=== PATIENT | female | born 1955 | race Caucasian/White ===

== ENCOUNTER 2017-11-08 10:25 | Inpatient (IN) | payer BC ==
[2017-11-08] MEDS ORDERED: NS 1000 ML 1,000 ML ONE (10:30)
[2017-11-08] MEDS ORDERED: ZOFRAN INJ 4 MG VIAL ONE ×3 (10:30→10:44)
[2017-11-08] MEDS ORDERED: ZOFRAN INJ 4 MG VIAL IVP ONE ×2 (10:31→11:47)
--- NOTE | 2017-11-08 10:37 | DR.GENAD ---
HPI - Complaint/Symptoms Chief Complaint Doctors Comments: Patient presents with complaint of abdominal pain and syncope of acute onset. PMH - PMH Past Surgical History: Yes ROS - Review of Systems Eyes: No Symptoms Reported ENTM: No Symptoms Reported Respiratoy: No Symptoms Reported Cardiovascular: No Symptoms Reported Gastrointestinal/Abdominal: No Symptoms Reported Genitourinary: No Symptoms Reported Neurological: No Symptoms Reported Musculoskeletal: No Symptoms Reported Integumentary: No Symptoms Reported Hematologic/Lymphatic: No Symptoms Reported Endocrine: No Symptoms Reported Psychiatric: No Symptoms Reported All Other Systems: Reviewed and Negative PE - Vital Signs Vitals: Temperature 97.5 F Pulse Rate [Right Brachial] 114 Pulse Rate 60 Respiratory Rate 18 Blood Pressure [Right Arm] 126/56 Blood Pressure 121/63 O2 Sat by Pulse Oximetry 99 - General Limitations: No Limitations General Appearance: Alert, In Distress - Head Head Exam: Normal Inspection, Atraumatic - Eyes Eye exam: Normal Appearance, PERRL, EOMI - ENT ENT Exam: Normal Exam, Normal Oropharynx External Ear Exam: Normal External Inspection TM/Canal Exam: Bilateral Normal Nose Exam: Normal Nose Exam Mouth Exam: Normal Inspection Throat Exam: Normal Inspection - Neck Neck Exam: Normal Inspection - Chest Chest Inspection: Normal Inspection - Respiratory Respiratory Exam: Normal Lung Sounds Bilat Respiratory Exam: Bilateral Clear to Auscultation - Cardiovascular Cardiovascular Exam: Tachycardia - Abdominal Exam Abdominal Exam: Rebound (RLQ), Dimnished Bowel Sounds Abdominal Tenderness: RLQ, Suprapubic - Extremities Extremities Exam: Normal Inspection - Back Back Exam: Normal Inspection - Neurologic Neurological Exam: Alert, Oriented X3, CN II-XII Intact - Psychiatric Psychiatric Exam: Normal Affect - Skin Skin Exam: Warm, Dry, Intact Course - Reevaluation 1st: Improved - Consultation Called: 12:40 (Agreed to admit for further evaluation) ROR - Labs Reviewed Laboratory Results Reviewed?: Yes (low potassium) Result Diagrams: 11/08/17 10:53 11/08/17 10:53 Laboratory: WBC 13.2 X10^3/uL (3.6-10.0) H 11/08/17 10:53 RBC 4.17 X10^6/uL (3.5-5.4) 11/08/17 10:53 Hgb 11.8 g/dL (12.0-16.0) L 11/08/17 10:53 Hct 35.7 % (36.0-47.0) L 11/08/17 10:53 MCV 85.6 fL (80.0-100.0) 11/08/17 10:53 MCH 28.3 pg (27.0-34.0) 11/08/17 10:53 MCHC 33.1 g/dL (33.0-35.0) 11/08/17 10:53 RDW 14.3 % (11.6-16.5) 11/08/17 10:53 Plt Count 232 X10^3/uL (150.0-450.0) 11/08/17 10:53 MPV 8.5 fL (7.4-11.0) 11/08/17 10:53 Neut % (Auto) 68.1 % (42.0-75.0) 11/08/17 10:53 Lymph % (Auto) 26.9 % (21.0-51.0) 11/08/17 10:53 [place] % (Auto) 3.8 % (0.0-13.0) 11/08/17 10:53 Eos % (Auto) 0.7 % (0.9-2.9) L 11/08/17 10:53 Baso % (Auto) 0.5 % (0.2-1.0) 11/08/17 10:53 Neut # (Auto) 9.0 x10^3/uL (2.2-4.8) H 11/08/17 10:53 Lymph # (Auto) 3.5 X10^3/uL (1.3-2.9) H 11/08/17 10:53 [place] # (Auto) 0.5 x10^3/uL (0.3-0.8) 11/08/17 10:53 Eos # (Auto) 0.1 x10^3/uL (0.0-0.2) 11/08/17 10:53 Baso # (Auto) 0.1 X10^3/uL (0.0-0.1) 11/08/17 10:53 Absolute Nucleated RBC 0.0 /100WBC 11/08/17 10:53 INR Target Range - 11/08/17 10:53 INR 0.98 (0.8-1.3) 11/08/17 10:53 APTT 23.9 SECONDS (22.9-36.5) 11/08/17 10:53 PTT Comment - 11/08/17 10:53 Sodium 143 mmol/L (136-145) 11/08/17 10:53 Corrected Sodium 144 mmol/L (136-145) 11/08/17 10:53 Potassium 3.3 mmol/L (3.5-5.1) L 11/08/17 10:53 Chloride 105 mmol/L (98-107) 11/08/17 10:53 Carbon Dioxide 24.6 mmol/L (21-32) 11/08/17 10:53 BUN 20 mg/dL (7-18) H 11/08/17 10:53 Creatinine 0.96 mg/dL (0.55-1.02) 11/08/17 10:53 Est GFR (MDRD) Af Amer > 60 (>60) 11/08/17 10:53 Est GFR (MDRD) Non-Af > 60 (>60) 11/08/17 10:53 Glucose 128 mg/dL (65-99) H 11/08/17 10:53 Calcium 9.4 mg/dL (8.5-10.1) 11/08/17 10:53 Corrected Calcium TNP 11/08/17 10:53 Magnesium 1.9 mg/dL (1.7-2.9) 11/08/17 10:53 Total Bilirubin 0.30 mg/dL (0.2-1.0) 11/08/17 10:53 AST 18 Units/L (15-37) 11/08/17 10:53 ALT 23 Units/L (12-78) 11/08/17 10:53 Alkaline Phosphatase 59 Units/L (46-116) 11/08/17 10:53 Creatine Kinase 43 Units/L (26-192) 11/08/17 10:53 CK-MB (CK-2) < 1.0 ng/mL (0-4.0) 11/08/17 10:53 CK/CKMB % Calc 2.3 % (<4) 11/08/17 10:53 Troponin I < 0.02 ng/mL (0-1.5) 11/08/17 10:53 Total Protein 7.1 g/dL (6.4-8.2) 11/08/17 10:53 Albumin 3.7 g/dL (3.4-5.0) 11/08/17 10:53 Globulin 3.4 g/dL (2.5-4.5) 11/08/17 10:53 Albumin/Globulin Ratio 1.1 Ratio (1.1-2.1) 11/08/17 10:53 Amylase 71 Units/L (25-115) 11/08/17 10:53 Lipase 118 Units/L (73-393) 11/08/17 10:53 - XRAY XRAY Interpreted by: Radiologist (CT Brain: negative for acute process, Chest: negative; CT abdom/pelv: Scattered penumobilia throughout the abdomen and pelvis , possible secondary to recent avbdominal surgery although perforated hollow viscus not excluded. Report reviewed by surgeon who discussed report with radiologist.) - Diagnosis Discharge Problem: Acute abdominal pain in right lower quadrant - Discharge Plan Condition: Stable - Follow ups/Referrals Follow ups/Referrals: RAAD MIRANDA [Primary Care Provider] - 3 days - Instructions
[2017-11-08] MEDS ORDERED: DILAUDID INJ IVP ONE (10:38)
[2017-11-08] MEDS ORDERED: DILAUDID INJ ONE ×3 (10:39→18:50)
[2017-11-08] MEDS ORDERED: DIPRIVAN VIAL ONE (10:44)
[2017-11-08] MEDS ORDERED: ROBINUL ONE (10:44)
[2017-11-08] MEDS ORDERED: QUELICIN (OR ANECTINE) ONE (10:44)
[2017-11-08] MEDS ORDERED: NORCURON INJ 10 MG VIAL ONE (10:44)
[2017-11-08] MEDS ORDERED: XYLOCAINE 2 % (PLAIN) ONE (10:44)
[2017-11-08] MEDS ORDERED: SUPRANE IN ONE (10:44)
[2017-11-08] MEDS ORDERED: NEOSTIGMINE INJ ONE (10:44)
[2017-11-08] MEDS ORDERED: EPHEDRINE SULFATE INJ ONE (10:44)
[2017-11-08] MEDS ORDERED: BENADRYL INJ 50 MG VIAL ONE (10:47)
[2017-11-08] MEDS ORDERED: BENADRYL INJ 50 MG VIAL IVP ONE (10:47)
[2017-11-08] MEDS ORDERED: DILAUDID INJ IVP STA (10:49)
[2017-11-08] MEDS ORDERED: NS 100 ML IV 100 ML IV ONE (10:56)
[2017-11-08 11:03] LABS: BASOPHILS # (AUTO) 0.1 X10^3/uL (0.0-0.1); BASOPHILS % (AUTO) 0.5 % (0.2-1.0); EOSINOPHILS # (AUTO) 0.1 x10^3/uL (0.0-0.2); EOSINOPHILS % (AUTO) 0.7 % (0.9-2.9); HEMATOCRIT 35.7 % (36.0-47.0); HEMOGLOBIN 11.8 g/dL (12.0-16.0); LYMPHOCYTES # (AUTO) 3.5 X10^3/uL (1.3-2.9); LYMPHOCYTES % (AUTO) 26.9 % (21.0-51.0); MEAN CORPUSCULAR HEMOGLOBIN 28.3 pg (27.0-34.0); MEAN CORPUSCULAR HGB CONC 33.1 g/dL (33.0-35.0); MEAN CORPUSCULAR VOLUME 85.6 fL (80.0-100.0); MEAN PLATELET VOLUME 8.5 fL (7.4-11.0); MONOCYTES # (AUTO) 0.5 x10^3/uL (0.3-0.8); MONOCYTES % (AUTO) 3.8 % (0.0-13.0); NEUTROPHILS % (AUTO) 68.1 % (42.0-75.0); PLATELET COUNT 232 X10^3/uL (150.0-450.0); RED BLOOD COUNT 4.17 X10^6/uL (3.5-5.4); RED CELL DISTRIBUTION WIDTH 14.3 % (11.6-16.5); WHITE BLOOD COUNT 13.2 X10^3/uL (3.6-10.0)
[2017-11-08 11:07] VITALS: BMI 25.0
[2017-11-08] MEDS: NS 1000 ML 1,000 ML IV SCH (11:08)
[2017-11-08 11:37] LABS: BLOOD UREA NITROGEN 20 mg/dL (7-18); CALCIUM 9.4 mg/dL (8.5-10.1); CARBON DIOXIDE 24.6 mmol/L (21-32); CHLORIDE 105 mmol/L (98-107); COR NA(FOR HYPERGLY) 144 mmol/L (136-145); CREATININE 0.96 mg/dL (0.55-1.02); SODIUM 143 mmol/L (136-145); TROPONIN I < 0.02 ng/mL (0-1.5); eGFR BLACK RACES > 60 (>60); eGFR NON BLACK RACES > 60 (>60)
[2017-11-08 11:39] LABS: ALANINE AMINOTRANSFERASE 23 Units/L (12-78); ALBUMIN 3.7 g/dL (3.4-5.0); ALKALINE PHOSPHATASE 59 Units/L (46-116); ASPARTATE AMINO TRANSFERASE 18 Units/L (15-37); CKMB % 2.3 % (<4); CREATINE KINASE 43 Units/L (26-192); CREATINE KINASE MB < 1.0 ng/mL (0-4.0); LIPASE 118 Units/L (73-393); MAGNESIUM 1.9 mg/dL (1.7-2.9); TOTAL PROTEIN 7.1 g/dL (6.4-8.2)
[2017-11-08] MEDS ORDERED: DILAUDID INJ IVP PRN (11:46)
--- NOTE | 2017-11-08 11:58 | RAD ---
Examination: AP chest History: Syncope Findings: Normal transverse heart diameter with clear lungs and pleural spaces. Impression: No acute or significant chest abnormality demonstrated. Reported By:
--- NOTE | 2017-11-08 12:37 | CT ---
HISTORY: Syncope Study: CT brain without contrast Comparison: No priors Technique: Multiple axial images of the brain were obtained from the skull base to the vertex without administra tion of IV contrast. Coronal and sagittal images are also reviewed. Dose reduction techniques utilize d automatic exposure control. Findings: No acute intraparenchymal hemorrhage or mass can be identified. No extra-axial fluid collections are seen. No alteration in the attenuation of the brain parenchyma can be identified to suggest acute o r subacute ischemic change. The ventricular system is symmetric and nondilated. There is chronic pe riventricular white matter disease observed and age-appropriate generalized atrophy. IMPRESSION: 1. No acute intracranial process can be identified. 2. Chronic periventricular white matter disease likely on the basis of small vessel ischemic change. 3. Age-appropriate atrophic changes are seen. Reported By:
--- NOTE | 2017-11-08 12:38 | CT ---
HISTORY: Abdominal pain Study: CT abdomen and pelvis without contrast Comparison: None Technique: Multiple axial images of the abdomen and pelvis were obtained from the lung bases to the pubic symphy sis without the administration of IV contrast. Findings: The visualized portions of the lung bases are unremarkable. Imaging of the abdomen and pelvis demonstrates pneumobilia scattered throughout the abdomen and pelvi s. This pneumobilia could be secondary to recent abdominal surgery, given patient's history of an ant erior approach lumbar fusion. However, a ruptured hollow viscus could appearance as well, and clinica l correlation is recommended in this regard. There is inflammatory stranding as well as free fluid wi thin the lower central abdomen and pelvis, possibly related to recent surgery. Evaluation of the sig moid colon and small bowel is very limited secondary lack of both oral and IV contrast. Although thes e inflammatory changes could be related to recent surgery, bowel pathology/perforation cannot be enti rely excluded. There appear to be surgical changes involving the sigmoid colon. Surgical clips are pr esent within the left in the pelvis. Within the posterior right hemipelvis there is a calcified struc ture measuring approximately 2.3 cm x 2.6 cm. This calcified structure is indeterminate but could pos sibly represent the remnant of a a calcified uterine fibroid or calcified ovarian lesion. Correlation with pelvis sonography may be of benefit in a nonemergent setting. The liver is unremarkable. The ga llbladder is mildly distended but otherwise unremarkable. A small hiatal hernia is incidentally noted . The pancreas, spleen, and bilateral adrenal glands are grossly unremarkable. Within the inferior po le of the left kidney there is a 45 mm nonobstructing caliceal stone. There is no hydronephrosis. No pathologic lymphadenopathy is identified within the abdomen or pelvis. Incidental note is made of a s mall fat containing umbilical hernia. The urinary bladder is grossly unremarkable. The bony structure s are grossly intact. Extensive postsurgical changes of the lumbar spine incidentally noted. IMPRESSION: 1. Scattered pneumobilia throughout the abdomen and pelvis, possibly secondary to recent abdominal s urgery, although perforated hollow viscus not excluded. Please see above discussion. Reported By:
[2017-11-08 13:21] LABS: BILIRUBIN,URINE NEGATIVE (NEGATIVE); BLOOD/HEMOGLOBIN,URINE NEGATIVE (NEGATIVE); GLUCOSE, URINE NEGATIVE (NEGATIVE); KETONES,URINE NEGATIVE (NEGATIVE); LEUKOCYTE ESTERASE ,URINE 1+ (NEGATIVE); NITRITES,URINE NEGATIVE (NEGATIVE); PROTEIN,URINE NEGATIVE (NEGATIVE); UROBILINOGEN,URINE NORMAL (NORMAL)
[2017-11-08 13:24] LABS: COLOR,URINE YELLOW (YELLOW)
[2017-11-08 13:29] LABS: APPEARANCE,URINE SLIGHTLY HAZY (CLEAR); RBC,URINE 0-2 /HPF (NONE SEEN); SQUAMOUS EPITHELIAL CELL,UR FEW /HPF (NEGATIVE)
[2017-11-08 13:30] LABS: AMORPHOUS SEDIMENT,UR 2+ /HPF (NEGATIVE); BACTERIA,URINE TRACE /HPF (NEGATIVE); MUCUS,URINE RARE /HPF (NEGATIVE)
[2017-11-08] MEDS ORDERED: NS 100 ML IV + SPIKE MINIBAG* 100 ML IV ONE ×2 (13:37→22:27)
[2017-11-08] MEDS: ZOSYN VIAL 3.375 GM IV SCH ×2 (13:44→23:40)
[2017-11-08] MEDS: FLAGYL IV PREMIX 500 MG BAG 500 MG/100 ML BAG IV SCH ×3 (13:44→21:43)
[2017-11-08] MEDS ORDERED: K-RIDER 10 MEQ/NS 100 ML 10 MEQ/100 ML BAG IV ONE (13:59)
[2017-11-08] MEDS ORDERED: ZOSYN VIAL 4.5 GM 4.5 GM in NS 100 ML IV + SPIKE MINIBAG* 100 ML IV SCH (14:00)
[2017-11-08] MEDS ORDERED: K-LYTE EFFERVESCENT PO ONE (14:04)
[2017-11-08] MEDS ORDERED: FENTANYL INJ 250 mcg ONE (14:38)
[2017-11-08] MEDS ORDERED: LR 1000 ML IV 1,000 ML IV ONE ×3 (14:42→18:16)
[2017-11-08] MEDS ORDERED: NS IRRIGATION 1000 ML 1,000 ML IR ONE (15:19)
[2017-11-08] MEDS ORDERED: ZOFRAN INJ 4 MG VIAL IVP PRN (17:39)
[2017-11-08] MEDS ORDERED: BENADRYL INJ 50 MG VIAL IVP PRN (17:39)
[2017-11-08] MEDS ORDERED: PHENERGAN INJ 25 MG IVP PRN (17:39)
[2017-11-08] MEDS ORDERED: REGLAN INJ 10 MG VIAL IVP PRN (17:39)
[2017-11-08] MEDS ORDERED: BACITRACIN VIAL ONE (17:40)
[2017-11-08] MEDS ORDERED: OFIRMEV IV 1000 MG VIAL 1,000 MG/100 ML VIAL IV ONE (17:44)
[2017-11-08] MEDS ORDERED: NS IRRIGATION 1000 ML 1,000 ML with BACITRACIN VIAL 50,000 UNT IR ONE ×2 (17:46)
--- NOTE | 2017-11-08 18:50 | OR.GENERIC ---
Post-Op Note Generic - Post-Op Note Operative Report: procedure : exploratory laparotomy , lysis of extensive abdominal adhesions 2 - resection of recto sigmoid with peoximal colostomy as Vanessa's procedure . pre op: acute abdomen with ruptured viscus and free air .. Post op :ruptured diverticulitis with fecal peritonitis .2- extensive abdominal adhesions .. EBL 300 cc. Pt ia stable .. on IV ATB.. DVT prophylaxis , NPO.incentive spirometer .
[2017-11-08] MEDS: DILAUDID INJ IVP PRN ×5 (18:52→20:32)
[2017-11-08] MEDS ORDERED: D5 1/2 NS 1000 ML 1,000 ML with POTASSIUM CHLORIDE INJ 10 MEQ VIAL 10 MEQ IV SCH ×2 (19:00)
[2017-11-08] MEDS ORDERED: NS 500 ML IV 500 ML IV ONE (23:30)
[2017-11-09] MEDS: DILAUDID INJ IVP PRN ×9 (02:17→23:40)
[2017-11-09] MEDS: FLAGYL IV PREMIX 500 MG BAG 500 MG/100 ML BAG IV SCH ×4 (02:36→20:49)
[2017-11-09] MEDS: NS 1000 ML 1,000 ML IV SCH ×2 (03:49→18:20)
[2017-11-09] MEDS: D5 1/2 NS 1000 ML 1,000 ML IV SCH ×6 (03:49→20:40)
[2017-11-09] MEDS ORDERED: NS 100 ML IV + SPIKE MINIBAG* 100 ML IV ONE ×3 (05:54→22:07)
[2017-11-09] MEDS ORDERED: PEPCID 20 MG IV PREMIX* 20 MG/50 ML BAG IV SCH (06:00)
[2017-11-09 06:39] LABS: BASOPHILS % (AUTO) 0.1 % (0.2-1.0); HEMATOCRIT 35.1 % (36.0-47.0); HEMOGLOBIN 11.5 g/dL (12.0-16.0); LYMPHOCYTES # (AUTO) 1.1 X10^3/uL (1.3-2.9); LYMPHOCYTES % (AUTO) 10.2 % (21.0-51.0); MEAN CORPUSCULAR HEMOGLOBIN 28.4 pg (27.0-34.0); MEAN CORPUSCULAR HGB CONC 32.7 g/dL (33.0-35.0); MEAN CORPUSCULAR VOLUME 86.9 fL (80.0-100.0); MEAN PLATELET VOLUME 8.8 fL (7.4-11.0); MONOCYTES # (AUTO) 0.5 x10^3/uL (0.3-0.8); MONOCYTES % (AUTO) 4.4 % (0.0-13.0); NEUTROPHILS # (AUTO) 9.1 x10^3/uL (2.2-4.8); NEUTROPHILS % (AUTO) 85.3 % (42.0-75.0); PLATELET COUNT 226 X10^3/uL (150.0-450.0); RED BLOOD COUNT 4.04 X10^6/uL (3.5-5.4); RED CELL DISTRIBUTION WIDTH 14.3 % (11.6-16.5); WHITE BLOOD COUNT 10.7 X10^3/uL (3.6-10.0)
[2017-11-09 06:48] LABS: ALBUMIN 2.6 g/dL (3.4-5.0); CALCIUM 7.8 mg/dL (8.5-10.1); CARBON DIOXIDE 23.6 mmol/L (21-32); COR CA(FOR HYPOALB) 8.9 mg/dL (8.5-10.1); CREATININE 1.71 mg/dL (0.55-1.02); TOTAL PROTEIN 5.7 g/dL (6.4-8.2)
[2017-11-09] MEDS: ZOFRAN INJ 4 MG VIAL IV PRN ×3 (07:25→20:50)
[2017-11-09 07:38] LABS: BAND NEUTROPHILS % 60 % (0-10); METAMYELOCYTES % 4
[2017-11-09 07:54] LABS: PLATELET MORPHOLOGY COMMENT NORMAL (NORMAL)
[2017-11-09] MEDS ORDERED: PROTONIX INJ 40 MG VIAL IVP SCH (09:00)
[2017-11-09] MEDS ORDERED: LOVENOX INJ 40 MG SYR SC SCH (09:00)
--- NOTE | 2017-11-09 11:26 | DR.PROGNOT ---
Hospital Progress Notes - Progress Note for Day of: Progress Note Date: 11/09/17 - Chief Complaint Chief Complaint: PO laparatomy ,lysis of adhesions and Vanessa's procrdure. urine OP was poor last night because of the peritonitis and surgery ,. No SOB, no CP. C/O incisional pain .. BUN and Creatinine are slightly high . - Past Medical Family Social History Past Med/Fam/Surg Hx: No changes since H&P, Changes noted (describe) (Patient had colocoscopy 2014 ,that rervealed diverticulosis otherwise normal .) Allergies: Allergies Iodine and Iodide Containing Produc Allergy (Verified 11/08/17 10:49) meperidine [From Demerol] Allergy (Verified 11/08/17 10:49) - Vital Signs Vital Signs: Temperature 98.5 F Pulse Rate [Apical] 92 Pulse Rate [Right Brachial] 135 Pulse Rate 124 Respiratory Rate 14 Blood Pressure [Left Arm] 98/61 Blood Pressure [Right Arm] 126/56 Blood Pressure 121/66 O2 Sat by Pulse Oximetry 96 - Physical Exam GI:Auscultation: Decreased GI: Tenderness: Diffuse (soft abdomen with diffuse tenderness ) Mood Description: Calm Speech Pattern: Clear, Appropriate - Laboratory and Diagnostics Result Diagrams: 11/09/17 04:22 11/09/17 06:27 Labs: 11/08/17 16:24 Abdomen Gram Stain - Final 11/08/17 16:24 Abdomen Wound Culture - Preliminary 11/08/17 15:40 Abdomen Gram Stain - Final 11/08/17 15:40 Abdomen Wound Culture - Preliminary Laboratory WBC 10.7 X10^3/uL (3.6-10.0) H 11/09/17 04:22 RBC 4.04 X10^6/uL (3.5-5.4) 11/09/17 04:22 Hgb 11.5 g/dL (12.0-16.0) L 11/09/17 04:22 Hct 35.1 % (36.0-47.0) L 11/09/17 04:22 MCV 86.9 fL (80.0-100.0) 11/09/17 04:22 MCH 28.4 pg (27.0-34.0) 11/09/17 04:22 MCHC 32.7 g/dL (33.0-35.0) L 11/09/17 04:22 RDW 14.3 % (11.6-16.5) 11/09/17 04:22 Plt Count 226 X10^3/uL (150.0-450.0) 11/09/17 04:22 Plt Count Comment Adequate (ADEQUATE) 11/09/17 04:22 MPV 8.8 fL (7.4-11.0) 11/09/17 04:22 Neut % (Auto) 85.3 % (42.0-75.0) H 11/09/17 04:22 Lymph % (Auto) 10.2 % (21.0-51.0) L 11/09/17 04:22 [place] % (Auto) 4.4 % (0.0-13.0) 11/09/17 04:22 Eos % (Auto) 0.0 % (0.9-2.9) L 11/09/17 04:22 Baso % (Auto) 0.1 % (0.2-1.0) L 11/09/17 04:22 Neut # (Auto) 9.1 x10^3/uL (2.2-4.8) H 11/09/17 04:22 Lymph # (Auto) 1.1 X10^3/uL (1.3-2.9) L 11/09/17 04:22 [place] # (Auto) 0.5 x10^3/uL (0.3-0.8) 11/09/17 04:22 Eos # (Auto) 0.0 x10^3/uL (0.0-0.2) 11/09/17 04:22 Baso # (Auto) 0.0 X10^3/uL (0.0-0.1) 11/09/17 04:22 Absolute Nucleated RBC 0.0 /100WBC 11/09/17 04:22 Total Counted 100 11/09/17 04:22 Neutrophils % (Manual) 18 % (39-76) L 11/09/17 04:22 Band Neutrophils % 60 % (0-10) H 11/09/17 04:22 Lymphocytes % (Manual) 13 % (13-43) 11/09/17 04:22 Monocytes % (Manual) 5 % (4-9) 11/09/17 04:22 Metamyelocytes % 4 11/09/17 04:22 Plt Morphology Comment Normal (NORMAL) 11/09/17 04:22 RBC Morphology Normal (NORMAL) 11/09/17 04:22 INR Target Range - 11/08/17 10:53 INR 0.98 (0.8-1.3) 11/08/17 10:53 APTT 23.9 SECONDS (22.9-36.5) 11/08/17 10:53 PTT Comment - 11/08/17 10:53 Sodium 140 mmol/L (136-145) 11/09/17 06:27 Corrected Sodium 142 mmol/L (136-145) 11/09/17 06:27 Potassium 4.9 mmol/L (3.5-5.1) 11/09/17 06:27 Chloride 107 mmol/L (98-107) 11/09/17 06:27 Carbon Dioxide 23.6 mmol/L (21-32) 11/09/17 06:27 BUN 25 mg/dL (7-18) H 11/09/17 06:27 Creatinine 1.71 mg/dL (0.55-1.02) H 11/09/17 06:27 Est GFR (MDRD) Af Amer 39 (>60) L 11/09/17 06:27 Est GFR (MDRD) Non-Af 32 (>60) L 11/09/17 06:27 Glucose 171 mg/dL (65-99) H 11/09/17 06:27 Calcium 7.8 mg/dL (8.5-10.1) L 11/09/17 06:27 Corrected Calcium 8.9 mg/dL (8.5-10.1) 11/09/17 06:27 Magnesium 1.9 mg/dL (1.7-2.9) 11/08/17 10:53 Total Bilirubin 0.40 mg/dL (0.2-1.0) 11/09/17 06:27 AST 50 Units/L (15-37) H 11/09/17 06:27 ALT 39 Units/L (12-78) 11/09/17 06:27 Alkaline Phosphatase 45 Units/L (46-116) L 11/09/17 06:27 Creatine Kinase 43 Units/L (26-192) 11/08/17 10:53 CK-MB (CK-2) < 1.0 ng/mL (0-4.0) 11/08/17 10:53 CK/CKMB % Calc 2.3 % (<4) 11/08/17 10:53 Troponin I < 0.02 ng/mL (0-1.5) 11/08/17 10:53 Total Protein 5.7 g/dL (6.4-8.2) L 11/09/17 06:27 Albumin 2.6 g/dL (3.4-5.0) L 11/09/17 06:27 Globulin 3.1 g/dL (2.5-4.5) 11/09/17 06:27 Albumin/Globulin Ratio 0.8 Ratio (1.1-2.1) L 11/09/17 06:27 Amylase 71 Units/L (25-115) 11/08/17 10:53 Lipase 118 Units/L (73-393) 11/08/17 10:53 Specimen Type Catherized urine 11/08/17 13:02 Urine Color Yellow (YELLOW) 11/08/17 13:02 Urine Appearance Slightly hazy (CLEAR) 11/08/17 13:02 Urine pH 7.0 (5.0 - 8.0) 11/08/17 13:02 Ur Specific [place] 1.020 (1.000-1.030) 11/08/17 13:02 Urine Protein Negative (NEGATIVE) 11/08/17 13:02 Urine Glucose (UA) Negative (NEGATIVE) 11/08/17 13:02 Urine Ketones Negative (NEGATIVE) 11/08/17 13:02 Urine Occult Blood Negative (NEGATIVE) 11/08/17 13:02 Urine Nitrite Negative (NEGATIVE) 11/08/17 13:02 Urine Bilirubin Negative (NEGATIVE) 11/08/17 13:02 Urine Urobilinogen Normal (NORMAL) 11/08/17 13:02 Ur Leukocyte Esterase 1+ (NEGATIVE) 11/08/17 13:02 Urine RBC 0-2 /HPF (NONE SEEN) 11/08/17 13:02 Urine WBC 1-5 /HPF (NONE SEEN) 11/08/17 13:02 Ur Squamous Epith Cells Few /HPF (NEGATIVE) 11/08/17 13:02 Amorphous Sediment 2+ /HPF (NEGATIVE) 11/08/17 13:02 Urine Bacteria Trace /HPF (NEGATIVE) 11/08/17 13:02 Urine Mucus Rare /HPF (NEGATIVE) 11/08/17 13:02 Ur Culture Indicated? No/not indicated 11/08/17 13:02 Tissue Pathology To follow 11/08/17 19:00 - Assessment and Plan 1: PO laparatomy ,lysis of adhesions and Vanessa's procedure for ruptured Diverticulitis. peritonitis . dehydration. recent back surgery. 2: will increase IVF. same IV ATB. DVT prophylaxis. OOB with binder. D/C NGT.. may have water - Problem Patient Problems: Patient Problems Acute abdominal pain in right lower quadrant (Acute) R10.31
[2017-11-09] MEDS: ZOSYN VIAL 3.375 GM IV SCH ×3 (14:19→22:16)
[2017-11-09] MEDS ORDERED: ZOFRAN INJ 4 MG VIAL IVP ONE (15:50)
[2017-11-09] MEDS ORDERED: NS 1000 ML 0 ML ONE (17:38)
[2017-11-09] MEDS ORDERED: D5 1/2 NS 1000 ML 1,000 ML IV ONE (17:42)
[2017-11-10] MEDS: FLAGYL IV PREMIX 500 MG BAG 500 MG/100 ML BAG IV SCH ×5 (02:40→20:52)
[2017-11-10] MEDS: ZOFRAN INJ 4 MG VIAL IV PRN ×2 (02:41→14:03)
[2017-11-10] MEDS: DILAUDID INJ IVP PRN ×2 (02:41→06:02)
[2017-11-10] MEDS: D5 1/2 NS 1000 ML 1,000 ML IV SCH ×3 (03:31→20:54)
[2017-11-10] MEDS ORDERED: NS 100 ML IV + SPIKE MINIBAG* 100 ML IV ONE ×2 (05:17→22:19)
[2017-11-10] MEDS: ZOSYN VIAL 3.375 GM IV SCH ×3 (06:02→22:55)
[2017-11-10 06:22] LABS: BASOPHILS % (AUTO) 0.1 % (0.2-1.0); EOSINOPHILS % (AUTO) 0.1 % (0.9-2.9); HEMOGLOBIN 9.5 g/dL (12.0-16.0); LYMPHOCYTES % (AUTO) 8.8 % (21.0-51.0); MEAN CORPUSCULAR HEMOGLOBIN 28.8 pg (27.0-34.0); MEAN CORPUSCULAR HGB CONC 33.8 g/dL (33.0-35.0); MEAN CORPUSCULAR VOLUME 85.2 fL (80.0-100.0); MEAN PLATELET VOLUME 9.5 fL (7.4-11.0); MONOCYTES # (AUTO) 0.3 x10^3/uL (0.3-0.8); MONOCYTES % (AUTO) 2.4 % (0.0-13.0); NEUTROPHILS # (AUTO) 9.9 x10^3/uL (2.2-4.8); NEUTROPHILS % (AUTO) 88.6 % (42.0-75.0); PLATELET COUNT 164 X10^3/uL (150.0-450.0); RED BLOOD COUNT 3.29 X10^6/uL (3.5-5.4); RED CELL DISTRIBUTION WIDTH 14.5 % (11.6-16.5); WHITE BLOOD COUNT 11.2 X10^3/uL (3.6-10.0)
[2017-11-10 06:32] LABS: ALANINE AMINOTRANSFERASE 43 Units/L (12-78); ALBUMIN 2.1 g/dL (3.4-5.0); ALKALINE PHOSPHATASE 45 Units/L (46-116); ASPARTATE AMINO TRANSFERASE 49 Units/L (15-37); BLOOD UREA NITROGEN 16 mg/dL (7-18); CARBON DIOXIDE 25.7 mmol/L (21-32); CHLORIDE 104 mmol/L (98-107); COR CA(FOR HYPOALB) 9.5 mg/dL (8.5-10.1); COR NA(FOR HYPERGLY) 138 mmol/L (136-145); SODIUM 137 mmol/L (136-145); TOTAL PROTEIN 5.4 g/dL (6.4-8.2); eGFR BLACK RACES > 60 (>60); eGFR NON BLACK RACES 53 (>60)
[2017-11-10] MEDS ORDERED: MORPHINE SULFATE INJ 2 MG INJ IVP PRN (09:05)
[2017-11-10] MEDS: TORADOL 15 MG VIAL IVP PRN ×2 (09:22→18:38)
[2017-11-10] MEDS: ATIVAN INJ 2 MG VIAL IVP PRN (09:55)
--- NOTE | 2017-11-10 09:55 | DR.PROGNOT ---
Hospital Progress Notes - Progress Note for Day of: Progress Note Date: 11/10/17 - Chief Complaint Chief Complaint: PO laparatomy ,lysis of adhesions and Vanessa's procrdure. urine OP is much better today with improverd renal functions. No SOB, no CP. occasional palpitation with tackycardia. C/O incisional pain .. - Past Medical Family Social History Past Med/Fam/Surg Hx: No changes since H&P, Changes noted (describe) (Patient had colocoscopy 2014 ,that rervealed diverticulosis otherwise normal .) Allergies: Allergies Iodine and Iodide Containing Produc Allergy (Verified 11/08/17 10:49) meperidine [From Demerol] Allergy (Verified 11/08/17 10:49) - Vital Signs Vital Signs: Temperature 98.8 F Pulse Rate [Left Brachial] 109 Pulse Rate [Apical] 92 Pulse Rate [Right Brachial] 135 Pulse Rate 100 Respiratory Rate 20 Blood Pressure [Left Arm] 113/55 Blood Pressure [Right Arm] 111/54 Blood Pressure 121/66 O2 Sat by Pulse Oximetry 96 - Physical Exam Cardiovascular: Tachycardia GI:Auscultation: Decreased GI: Tenderness: Diffuse (soft abdomen with diffuse tenderness ) Mood Description: Calm Speech Pattern: Clear, Appropriate - Laboratory and Diagnostics Result Diagrams: 11/10/17 05:21 11/10/17 05:21 Labs: 11/08/17 16:24 Abdomen Gram Stain - Final 11/08/17 16:24 Abdomen Wound Culture - Preliminary 11/08/17 15:40 Abdomen Gram Stain - Final 11/08/17 15:40 Abdomen Wound Culture - Final Escherichia Coli Laboratory WBC 11.2 X10^3/uL (3.6-10.0) H 11/10/17 05:21 RBC 3.29 X10^6/uL (3.5-5.4) L 11/10/17 05:21 Hgb 9.5 g/dL (12.0-16.0) L D 11/10/17 05:21 Hct 28.0 % (36.0-47.0) L 11/10/17 05:21 MCV 85.2 fL (80.0-100.0) 11/10/17 05:21 MCH 28.8 pg (27.0-34.0) 11/10/17 05:21 MCHC 33.8 g/dL (33.0-35.0) 11/10/17 05:21 RDW 14.5 % (11.6-16.5) 11/10/17 05:21 Plt Count 164 X10^3/uL (150.0-450.0) 11/10/17 05:21 Plt Count Comment Adequate (ADEQUATE) 11/09/17 04:22 MPV 9.5 fL (7.4-11.0) 11/10/17 05:21 Neut % (Auto) 88.6 % (42.0-75.0) H 11/10/17 05:21 Lymph % (Auto) 8.8 % (21.0-51.0) L 11/10/17 05:21 [place] % (Auto) 2.4 % (0.0-13.0) 11/10/17 05:21 Eos % (Auto) 0.1 % (0.9-2.9) L 11/10/17 05:21 Baso % (Auto) 0.1 % (0.2-1.0) L 11/10/17 05:21 Neut # (Auto) 9.9 x10^3/uL (2.2-4.8) H 11/10/17 05:21 Lymph # (Auto) 1.0 X10^3/uL (1.3-2.9) L 11/10/17 05:21 [place] # (Auto) 0.3 x10^3/uL (0.3-0.8) 11/10/17 05:21 Eos # (Auto) 0.0 x10^3/uL (0.0-0.2) 11/10/17 05:21 Baso # (Auto) 0.0 X10^3/uL (0.0-0.1) 11/10/17 05:21 Absolute Nucleated RBC 0.0 /100WBC 11/10/17 05:21 Total Counted 100 11/09/17 04:22 Neutrophils % (Manual) 18 % (39-76) L 11/09/17 04:22 Band Neutrophils % 60 % (0-10) H 11/09/17 04:22 Lymphocytes % (Manual) 13 % (13-43) 11/09/17 04:22 Monocytes % (Manual) 5 % (4-9) 11/09/17 04:22 Metamyelocytes % 4 11/09/17 04:22 Plt Morphology Comment Normal (NORMAL) 11/09/17 04:22 RBC Morphology Normal (NORMAL) 11/09/17 04:22 INR Target Range - 11/08/17 10:53 INR 0.98 (0.8-1.3) 11/08/17 10:53 APTT 23.9 SECONDS (22.9-36.5) 11/08/17 10:53 PTT Comment - 11/08/17 10:53 Sodium 137 mmol/L (136-145) 11/10/17 05:21 Corrected Sodium 138 mmol/L (136-145) 11/10/17 05:21 Potassium 4.0 mmol/L (3.5-5.1) 11/10/17 05:21 Chloride 104 mmol/L (98-107) 11/10/17 05:21 Carbon Dioxide 25.7 mmol/L (21-32) 11/10/17 05:21 BUN 16 mg/dL (7-18) 11/10/17 05:21 Creatinine 1.10 mg/dL (0.55-1.02) H 11/10/17 05:21 Est GFR (MDRD) Af Amer > 60 (>60) 11/10/17 05:21 Est GFR (MDRD) Non-Af 53 (>60) L 11/10/17 05:21 Glucose 123 mg/dL (65-99) H 11/10/17 05:21 Calcium 8.0 mg/dL (8.5-10.1) L 11/10/17 05:21 Corrected Calcium 9.5 mg/dL (8.5-10.1) 11/10/17 05:21 Magnesium 1.9 mg/dL (1.7-2.9) 11/08/17 10:53 Total Bilirubin 0.40 mg/dL (0.2-1.0) 11/10/17 05:21 AST 49 Units/L (15-37) H 11/10/17 05:21 ALT 43 Units/L (12-78) 11/10/17 05:21 Alkaline Phosphatase 45 Units/L (46-116) L 11/10/17 05:21 Creatine Kinase 43 Units/L (26-192) 11/08/17 10:53 CK-MB (CK-2) < 1.0 ng/mL (0-4.0) 11/08/17 10:53 CK/CKMB % Calc 2.3 % (<4) 11/08/17 10:53 Troponin I < 0.02 ng/mL (0-1.5) 11/08/17 10:53 Total Protein 5.4 g/dL (6.4-8.2) L 11/10/17 05:21 Albumin 2.1 g/dL (3.4-5.0) L 11/10/17 05:21 Globulin 3.3 g/dL (2.5-4.5) 11/10/17 05:21 Albumin/Globulin Ratio 0.6 Ratio (1.1-2.1) L 11/10/17 05:21 Amylase 71 Units/L (25-115) 11/08/17 10:53 Lipase 118 Units/L (73-393) 11/08/17 10:53 Specimen Type Catherized urine 11/08/17 13:02 Urine Color Yellow (YELLOW) 11/08/17 13:02 Urine Appearance Slightly hazy (CLEAR) 11/08/17 13:02 Urine pH 7.0 (5.0 - 8.0) 11/08/17 13:02 Ur Specific [place] 1.020 (1.000-1.030) 11/08/17 13:02 Urine Protein Negative (NEGATIVE) 11/08/17 13:02 Urine Glucose (UA) Negative (NEGATIVE) 11/08/17 13:02 Urine Ketones Negative (NEGATIVE) 11/08/17 13:02 Urine Occult Blood Negative (NEGATIVE) 11/08/17 13:02 Urine Nitrite Negative (NEGATIVE) 11/08/17 13:02 Urine Bilirubin Negative (NEGATIVE) 11/08/17 13:02 Urine Urobilinogen Normal (NORMAL) 11/08/17 13:02 Ur Leukocyte Esterase 1+ (NEGATIVE) 11/08/17 13:02 Urine RBC 0-2 /HPF (NONE SEEN) 11/08/17 13:02 Urine WBC 1-5 /HPF (NONE SEEN) 11/08/17 13:02 Ur Squamous Epith Cells Few /HPF (NEGATIVE) 11/08/17 13:02 Amorphous Sediment 2+ /HPF (NEGATIVE) 11/08/17 13:02 Urine Bacteria Trace /HPF (NEGATIVE) 11/08/17 13:02 Urine Mucus Rare /HPF (NEGATIVE) 11/08/17 13:02 Ur Culture Indicated? No/not indicated 11/08/17 13:02 Tissue Pathology To follow 11/08/17 19:00 - Assessment and Plan 1: PO laparatomy ,lysis of adhesions and Vanessa's procedure for ruptured Diverticulitis. peritonitis . recent back surgery. 2: same IVF and ATB. DVT prophylaxis. OOB with binder. on clear liquid.. - Problem Patient Problems: Patient Problems Acute abdominal pain in right lower quadrant (Acute) R10.31
[2017-11-10] MEDS: PROTONIX INJ 40 MG VIAL IVP SCH (09:58)
[2017-11-10] MEDS: LOVENOX INJ 40 MG SYR SC SCH (09:58)
[2017-11-10] MEDS ORDERED: ZANAFLEX PO PRN (13:09)
[2017-11-10] MEDS ORDERED: NEURONTIN TAB 600 MG PO PRN (13:50)
[2017-11-10] MEDS: TAB-A-VITE PO SCH ×2 (13:56→14:12)
[2017-11-10] MEDS: EVISTA PO SCH ×2 (14:04→14:12)
[2017-11-10] MEDS: CRESTOR TAB 10 MG PO SCH (20:51)
[2017-11-10] MEDS: ATIVAN TAB 0.5 MG PO PRN (20:52)
[2017-11-11] MEDS: ATIVAN INJ 2 MG VIAL IVP PRN ×3 (00:02→18:41)
[2017-11-11] MEDS: FLAGYL IV PREMIX 500 MG BAG 500 MG/100 ML BAG IV SCH ×4 (02:23→20:49)
[2017-11-11] MEDS ORDERED: NS 100 ML IV + SPIKE MINIBAG* 100 ML IV ONE ×3 (04:27→19:26)
[2017-11-11] MEDS: ZOSYN VIAL 3.375 GM IV SCH ×3 (05:04→21:43)
[2017-11-11] MEDS: D5 1/2 NS 1000 ML 1,000 ML IV SCH ×4 (05:46→20:49)
[2017-11-11 06:15] LABS: BASOPHILS % (AUTO) 0.2 % (0.2-1.0); EOSINOPHILS # (AUTO) 0.1 x10^3/uL (0.0-0.2); EOSINOPHILS % (AUTO) 0.5 % (0.9-2.9); HEMATOCRIT 23.3 % (36.0-47.0); HEMOGLOBIN 7.9 g/dL (12.0-16.0); LYMPHOCYTES # (AUTO) 0.8 X10^3/uL (1.3-2.9); LYMPHOCYTES % (AUTO) 6.1 % (21.0-51.0); MEAN CORPUSCULAR HEMOGLOBIN 28.6 pg (27.0-34.0); MEAN CORPUSCULAR HGB CONC 34.2 g/dL (33.0-35.0); MEAN CORPUSCULAR VOLUME 83.6 fL (80.0-100.0); MEAN PLATELET VOLUME 8.8 fL (7.4-11.0); MONOCYTES # (AUTO) 0.3 x10^3/uL (0.3-0.8); MONOCYTES % (AUTO) 2.5 % (0.0-13.0); NEUTROPHILS # (AUTO) 12.5 x10^3/uL (2.2-4.8); NEUTROPHILS % (AUTO) 90.7 % (42.0-75.0); PLATELET COUNT 156 X10^3/uL (150.0-450.0); RED BLOOD COUNT 2.78 X10^6/uL (3.5-5.4); RED CELL DISTRIBUTION WIDTH 14.5 % (11.6-16.5); WHITE BLOOD COUNT 13.7 X10^3/uL (3.6-10.0)
[2017-11-11 06:26] LABS: ALANINE AMINOTRANSFERASE 32 Units/L (12-78); ALBUMIN 1.8 g/dL (3.4-5.0); ALKALINE PHOSPHATASE 50 Units/L (46-116); ASPARTATE AMINO TRANSFERASE 29 Units/L (15-37); BLOOD UREA NITROGEN 10 mg/dL (7-18); CALCIUM 8.6 mg/dL (8.5-10.1); CARBON DIOXIDE 26.2 mmol/L (21-32); CHLORIDE 107 mmol/L (98-107); COR CA(FOR HYPOALB) 10.4 mg/dL (8.5-10.1); COR NA(FOR HYPERGLY) 139 mmol/L (136-145); CREATININE 0.87 mg/dL (0.55-1.02); SODIUM 138 mmol/L (136-145); TOTAL PROTEIN 4.9 g/dL (6.4-8.2); eGFR BLACK RACES > 60 (>60); eGFR NON BLACK RACES > 60 (>60)
[2017-11-11] MEDS: TORADOL 15 MG VIAL IVP PRN ×3 (06:43→18:00)
[2017-11-11 07:13] LABS: BAND NEUTROPHILS % 14 % (0-10); PLATELET MORPHOLOGY COMMENT NORMAL (NORMAL)
--- NOTE | 2017-11-11 08:04 | RAD ---
HISTORY: Follow-up bowel resection Study: KUB Comparison: CT abdomen pelvis 11/08/2017 Findings: Surgical demetri are identified in the mid abdomen. There is a drain present on the right. The abdomi nal gas pattern is nonspecific. There is an ostomy in the left lower quadrant. No abnormal masses or abnormal calcifications are identified. Postsurgical changes are present in the lumbosacral spine. IMPRESSION: Nonspecific bowel gas pattern Reported By:
[2017-11-11] MEDS: EVISTA PO SCH (09:28)
[2017-11-11] MEDS: PROzac PO SCH (09:28)
[2017-11-11] MEDS: TAB-A-VITE PO SCH (09:30)
[2017-11-11] MEDS: PROTONIX INJ 40 MG VIAL IVP SCH (09:30)
[2017-11-11] MEDS: LOVENOX INJ 40 MG SYR SC SCH (09:30)
--- NOTE | 2017-11-11 17:23 | DR.PROGNOT ---
Hospital Progress Notes - Progress Note for Day of: Progress Note Date: 11/11/17 - Chief Complaint Chief Complaint: PO laparatomy ,lysis of adhesions and Vanessa's procrdure. urine OP is much better today with improverd renal functions. somewhat anxious but No SOB, no CP. occasional palpitation with tackycardia. C/O incisional pain . colostomy is functioning today.. - Past Medical Family Social History Past Med/Fam/Surg Hx: No changes since H&P, Changes noted (describe) (Patient had colocoscopy 2014 ,that rervealed diverticulosis otherwise normal .) Allergies: Allergies Iodine and Iodide Containing Produc Allergy (Verified 11/08/17 10:49) meperidine [From Demerol] Allergy (Verified 11/08/17 10:49) - Vital Signs Vital Signs: Temperature 98.6 F Pulse Rate [Left Brachial] 86 Pulse Rate [Apical] 92 Pulse Rate [Right Brachial] 135 Pulse Rate 100 Respiratory Rate 19 Blood Pressure [Left Arm] 83/50 Blood Pressure [Right Arm] 111/54 Blood Pressure 121/66 O2 Sat by Pulse Oximetry 96 - Physical Exam Cardiovascular: Tachycardia GI:Auscultation: Decreased GI: Tenderness: Diffuse (soft abdomen with diffuse tenderness , no wound infection , small amount of stool in colostomy bag.) Mood Description: Calm Speech Pattern: Clear, Appropriate - Laboratory and Diagnostics Result Diagrams: 11/11/17 05:20 11/11/17 05:20 Labs: 11/08/17 16:24 Abdomen Gram Stain - Final 11/08/17 16:24 Abdomen Wound Culture - Final Klebsiella Oxytoca 11/08/17 15:40 Abdomen Gram Stain - Final 11/08/17 15:40 Abdomen Wound Culture - Final Escherichia Coli Laboratory WBC 13.7 X10^3/uL (3.6-10.0) H 11/11/17 05:20 RBC 2.78 X10^6/uL (3.5-5.4) L 11/11/17 05:20 Hgb 7.9 g/dL (12.0-16.0) L 11/11/17 05:20 Hct 23.3 % (36.0-47.0) L 11/11/17 05:20 MCV 83.6 fL (80.0-100.0) 11/11/17 05:20 MCH 28.6 pg (27.0-34.0) 11/11/17 05:20 MCHC 34.2 g/dL (33.0-35.0) 11/11/17 05:20 RDW 14.5 % (11.6-16.5) 11/11/17 05:20 Plt Count 156 X10^3/uL (150.0-450.0) 11/11/17 05:20 Plt Count Comment Adequate (ADEQUATE) 11/11/17 05:20 MPV 8.8 fL (7.4-11.0) 11/11/17 05:20 Neut % (Auto) 90.7 % (42.0-75.0) H 11/11/17 05:20 Lymph % (Auto) 6.1 % (21.0-51.0) L 11/11/17 05:20 [place] % (Auto) 2.5 % (0.0-13.0) 11/11/17 05:20 Eos % (Auto) 0.5 % (0.9-2.9) L 11/11/17 05:20 Baso % (Auto) 0.2 % (0.2-1.0) 11/11/17 05:20 Neut # (Auto) 12.5 x10^3/uL (2.2-4.8) H 11/11/17 05:20 Lymph # (Auto) 0.8 X10^3/uL (1.3-2.9) L 11/11/17 05:20 [place] # (Auto) 0.3 x10^3/uL (0.3-0.8) 11/11/17 05:20 Eos # (Auto) 0.1 x10^3/uL (0.0-0.2) 11/11/17 05:20 Baso # (Auto) 0.0 X10^3/uL (0.0-0.1) 11/11/17 05:20 Absolute Nucleated RBC 0.0 /100WBC 11/11/17 05:20 Total Counted 100 11/11/17 05:20 Neutrophils % (Manual) 78 % (39-76) H 11/11/17 05:20 Band Neutrophils % 14 % (0-10) H 11/11/17 05:20 Lymphocytes % (Manual) 8 % (13-43) L 11/11/17 05:20 Monocytes % (Manual) 5 % (4-9) 11/09/17 04:22 Metamyelocytes % 4 11/09/17 04:22 Plt Morphology Comment Normal (NORMAL) 11/11/17 05:20 RBC Morphology Normal (NORMAL) 11/11/17 05:20 INR Target Range - 11/08/17 10:53 INR 0.98 (0.8-1.3) 11/08/17 10:53 APTT 23.9 SECONDS (22.9-36.5) 11/08/17 10:53 PTT Comment - 11/08/17 10:53 Sodium 138 mmol/L (136-145) 11/11/17 05:20 Corrected Sodium 139 mmol/L (136-145) 11/11/17 05:20 Potassium 3.6 mmol/L (3.5-5.1) 11/11/17 05:20 Chloride 107 mmol/L (98-107) 11/11/17 05:20 Carbon Dioxide 26.2 mmol/L (21-32) 11/11/17 05:20 BUN 10 mg/dL (7-18) 11/11/17 05:20 Creatinine 0.87 mg/dL (0.55-1.02) 11/11/17 05:20 Est GFR (MDRD) Af Amer > 60 (>60) 11/11/17 05:20 Est GFR (MDRD) Non-Af > 60 (>60) 11/11/17 05:20 Glucose 141 mg/dL (65-99) H 11/11/17 05:20 Calcium 8.6 mg/dL (8.5-10.1) 11/11/17 05:20 Corrected Calcium 10.4 mg/dL (8.5-10.1) H 11/11/17 05:20 Magnesium 1.9 mg/dL (1.7-2.9) 11/08/17 10:53 Total Bilirubin 0.40 mg/dL (0.2-1.0) 11/11/17 05:20 AST 29 Units/L (15-37) 11/11/17 05:20 ALT 32 Units/L (12-78) 11/11/17 05:20 Alkaline Phosphatase 50 Units/L (46-116) 11/11/17 05:20 Creatine Kinase 43 Units/L (26-192) 11/08/17 10:53 CK-MB (CK-2) < 1.0 ng/mL (0-4.0) 11/08/17 10:53 CK/CKMB % Calc 2.3 % (<4) 11/08/17 10:53 Troponin I < 0.02 ng/mL (0-1.5) 11/08/17 10:53 Total Protein 4.9 g/dL (6.4-8.2) L 11/11/17 05:20 Albumin 1.8 g/dL (3.4-5.0) L 11/11/17 05:20 Globulin 3.1 g/dL (2.5-4.5) 11/11/17 05:20 Albumin/Globulin Ratio 0.6 Ratio (1.1-2.1) L 11/11/17 05:20 Amylase 71 Units/L (25-115) 11/08/17 10:53 Lipase 118 Units/L (73-393) 11/08/17 10:53 Specimen Type Catherized urine 11/08/17 13:02 Urine Color Yellow (YELLOW) 11/08/17 13:02 Urine Appearance Slightly hazy (CLEAR) 11/08/17 13:02 Urine pH 7.0 (5.0 - 8.0) 11/08/17 13:02 Ur Specific [place] 1.020 (1.000-1.030) 11/08/17 13:02 Urine Protein Negative (NEGATIVE) 11/08/17 13:02 Urine Glucose (UA) Negative (NEGATIVE) 11/08/17 13:02 Urine Ketones Negative (NEGATIVE) 11/08/17 13:02 Urine Occult Blood Negative (NEGATIVE) 11/08/17 13:02 Urine Nitrite Negative (NEGATIVE) 11/08/17 13:02 Urine Bilirubin Negative (NEGATIVE) 11/08/17 13:02 Urine Urobilinogen Normal (NORMAL) 11/08/17 13:02 Ur Leukocyte Esterase 1+ (NEGATIVE) 11/08/17 13:02 Urine RBC 0-2 /HPF (NONE SEEN) 11/08/17 13:02 Urine WBC 1-5 /HPF (NONE SEEN) 11/08/17 13:02 Ur Squamous Epith Cells Few /HPF (NEGATIVE) 03/17/18 13:02 Amorphous Sediment 2+ /HPF (NEGATIVE) 11/08/17 13:02 Urine Bacteria Trace /HPF (NEGATIVE) 11/08/17 13:02 Urine Mucus Rare /HPF (NEGATIVE) 11/08/17 13:02 Ur Culture Indicated? No/not indicated 11/08/17 13:02 Tissue Pathology To follow 11/08/17 19:00 - Assessment and Plan 1: PO laparatomy ,lysis of adhesions and Vanessa's procedure for ruptured Diverticulitis. peritonitis . recent back surgery. 2: same IVF and ATB. DVT prophylaxis. OOB with binder. full liquid today.. - Problem Patient Problems: Patient Problems Acute abdominal pain in right lower quadrant (Acute) R10.31
[2017-11-11] MEDS ORDERED: ALBUMIN HUMAN 25%- 100ML 100 ML IV ONE (17:27)
[2017-11-11] MEDS ORDERED: PREVNAR 13 IM ONE (20:18)
[2017-11-11] MEDS: CRESTOR TAB 10 MG PO SCH (20:50)
[2017-11-11] MEDS ORDERED: FLONASE NASAL SPRAY ENOSTRIL ONE (23:35)
[2017-11-11] MEDS: FLONASE NASAL SPRAY ENOSTRIL SCH (23:39)
[2017-11-12] MEDS: FLAGYL IV PREMIX 500 MG BAG 500 MG/100 ML BAG IV SCH ×4 (02:02→20:33)
[2017-11-12] MEDS ORDERED: NS 100 ML IV + SPIKE MINIBAG* 100 ML IV ONE ×3 (04:27→20:17)
[2017-11-12] MEDS: D5 1/2 NS 1000 ML 1,000 ML IV SCH ×3 (05:12→20:32)
[2017-11-12] MEDS: ZOSYN VIAL 3.375 GM IV SCH ×3 (05:13→22:32)
[2017-11-12 06:09] LABS: ALANINE AMINOTRANSFERASE 25 Units/L (12-78); ALBUMIN 2.1 g/dL (3.4-5.0); ALKALINE PHOSPHATASE 61 Units/L (46-116); ASPARTATE AMINO TRANSFERASE 20 Units/L (15-37); BLOOD UREA NITROGEN 11 mg/dL (7-18); CALCIUM 8.8 mg/dL (8.5-10.1); CARBON DIOXIDE 25.3 mmol/L (21-32); CHLORIDE 107 mmol/L (98-107); COR CA(FOR HYPOALB) 10.3 mg/dL (8.5-10.1); COR NA(FOR HYPERGLY) 141 mmol/L (136-145); CREATININE 0.79 mg/dL (0.55-1.02); SODIUM 140 mmol/L (136-145); TOTAL PROTEIN 5.2 g/dL (6.4-8.2); eGFR BLACK RACES > 60 (>60); eGFR NON BLACK RACES > 60 (>60)
[2017-11-12 06:12] LABS: BASOPHILS % (AUTO) 0.2 % (0.2-1.0); EOSINOPHILS # (AUTO) 0.1 x10^3/uL (0.0-0.2); EOSINOPHILS % (AUTO) 1.1 % (0.9-2.9); HEMATOCRIT 21.4 % (36.0-47.0); HEMOGLOBIN 7.4 g/dL (12.0-16.0); LYMPHOCYTES # (AUTO) 0.9 X10^3/uL (1.3-2.9); LYMPHOCYTES % (AUTO) 8.2 % (21.0-51.0); MEAN CORPUSCULAR HGB CONC 34.8 g/dL (33.0-35.0); MEAN CORPUSCULAR VOLUME 83.4 fL (80.0-100.0); MEAN PLATELET VOLUME 8.8 fL (7.4-11.0); MONOCYTES # (AUTO) 0.5 x10^3/uL (0.3-0.8); MONOCYTES % (AUTO) 4.6 % (0.0-13.0); NEUTROPHILS # (AUTO) 9.4 x10^3/uL (2.2-4.8); NEUTROPHILS % (AUTO) 85.9 % (42.0-75.0); PLATELET COUNT 153 X10^3/uL (150.0-450.0); RED BLOOD COUNT 2.56 X10^6/uL (3.5-5.4); RED CELL DISTRIBUTION WIDTH 14.9 % (11.6-16.5); WHITE BLOOD COUNT 10.9 X10^3/uL (3.6-10.0)
[2017-11-12 06:32] LABS: HYPOCHROMASIA SLIGHT; PLATELET MORPHOLOGY COMMENT NORMAL (NORMAL)
[2017-11-12] MEDS ORDERED: POTASSIUM CHL 40 MEQ/NS 0.45% 500 ML IV PRN (06:38)
[2017-11-12] MEDS ORDERED: K-RIDER 10 MEQ/NS 100 ML 10 MEQ/100 ML BAG IV PRN (06:38)
[2017-11-12] MEDS ORDERED: POTASSIUM CHLORIDE LIQ 20 MEQ UDC PO PRN (06:38)
[2017-11-12] MEDS ORDERED: POTASSIUM CHL 60 MEQ/NS 0.45% 500 ML IV PRN (06:38)
[2017-11-12] MEDS ORDERED: K-LYTE EFFERVESCENT PO PRN (06:38)
[2017-11-12] MEDS ORDERED: MAGNESIUM SULFATE 1 GM/100 mL PREMIX 1 GM/100 ML BAG IV PRN (06:38)
[2017-11-12] MEDS ORDERED: MAG-OX TAB PO PRN (06:38)
[2017-11-12] MEDS: ATIVAN INJ 2 MG VIAL IVP PRN (09:12)
[2017-11-12] MEDS: NORCO 10/325 TAB PO PRN ×4 (09:14→22:33)
[2017-11-12] MEDS: PROzac PO SCH (09:15)
[2017-11-12] MEDS: TAB-A-VITE PO SCH (09:15)
[2017-11-12] MEDS: PROTONIX INJ 40 MG VIAL IVP SCH (09:15)
[2017-11-12] MEDS: EVISTA PO SCH (09:15)
[2017-11-12] MEDS: LOVENOX INJ 40 MG SYR SC SCH (09:15)
[2017-11-12] MEDS: FLONASE NASAL SPRAY ENOSTRIL SCH (09:29)
[2017-11-12] MEDS ORDERED: ALBUMIN HUMAN 25%- 100ML 100 ML IV ONE (10:38)
--- NOTE | 2017-11-12 14:04 | DR.PROGNOT ---
Hospital Progress Notes - Progress Note for Day of: Progress Note Date: 11/12/17 - Chief Complaint Chief Complaint: PO laparatomy ,lysis of adhesions and Vanessa's procrdure. urine OP is much better today with improverd renal functions. somewhat anxious and tired but No SOB, no CP. poor appetite . occasional palpitation with tachycardia. C/O incisional pain . colostomy is functioning today.. moderate anemia , hypokalemia . - Past Medical Family Social History Past Med/Fam/Surg Hx: No changes since H&P, Changes noted (describe) (Patient had colocoscopy 2014 ,that rervealed diverticulosis otherwise normal .) Allergies: Allergies Iodine and Iodide Containing Produc Allergy (Verified 11/08/17 10:49) meperidine [From Demerol] Allergy (Verified 11/08/17 10:49) - Vital Signs Vital Signs: Temperature 98.1 F Pulse Rate [Left Brachial] 94 Pulse Rate [Apical] 92 Pulse Rate [Right Brachial] 135 Pulse Rate 100 Respiratory Rate 20 Blood Pressure [Left Arm] 144/78 Blood Pressure [Right Arm] 111/54 Blood Pressure 121/66 O2 Sat by Pulse Oximetry 90 - Physical Exam Cardiovascular: Tachycardia GI:Auscultation: Normal GI: Tenderness: Diffuse (soft abdomen with diffuse tenderness , no wound infection , small amount of stool in colostomy bag.) Mood Description: Calm Speech Pattern: Clear, Appropriate - Laboratory and Diagnostics Result Diagrams: 11/12/17 05:23 11/12/17 05:23 Labs: 11/08/17 16:24 Abdomen Gram Stain - Final 11/08/17 16:24 Abdomen Wound Culture - Final Klebsiella Oxytoca 11/08/17 15:40 Abdomen Gram Stain - Final 11/08/17 15:40 Abdomen Wound Culture - Final Escherichia Coli Laboratory WBC 10.9 X10^3/uL (3.6-10.0) H 11/12/17 05:23 RBC 2.56 X10^6/uL (3.5-5.4) L 11/12/17 05:23 Hgb 7.4 g/dL (12.0-16.0) L 11/12/17 05:23 Hct 21.4 % (36.0-47.0) L 11/12/17 05:23 MCV 83.4 fL (80.0-100.0) 11/12/17 05:23 MCH 29.0 pg (27.0-34.0) 11/12/17 05:23 MCHC 34.8 g/dL (33.0-35.0) 11/12/17 05:23 RDW 14.9 % (11.6-16.5) 11/12/17 05:23 Plt Count 153 X10^3/uL (150.0-450.0) 11/12/17 05:23 Plt Count Comment Adequate (ADEQUATE) 11/12/17 05:23 MPV 8.8 fL (7.4-11.0) 11/12/17 05:23 Neut % (Auto) 85.9 % (42.0-75.0) H 11/12/17 05:23 Lymph % (Auto) 8.2 % (21.0-51.0) L 11/12/17 05:23 [place] % (Auto) 4.6 % (0.0-13.0) 11/12/17 05:23 Eos % (Auto) 1.1 % (0.9-2.9) 11/12/17 05:23 Baso % (Auto) 0.2 % (0.2-1.0) 11/12/17 05:23 Neut # (Auto) 9.4 x10^3/uL (2.2-4.8) H 11/12/17 05:23 Lymph # (Auto) 0.9 X10^3/uL (1.3-2.9) L 11/12/17 05:23 [place] # (Auto) 0.5 x10^3/uL (0.3-0.8) 11/12/17 05:23 Eos # (Auto) 0.1 x10^3/uL (0.0-0.2) 11/12/17 05:23 Baso # (Auto) 0.0 X10^3/uL (0.0-0.1) 11/12/17 05:23 Absolute Nucleated RBC 0.0 /100WBC 11/12/17 05:23 Total Counted 100 11/11/17 05:20 Neutrophils % (Manual) 78 % (39-76) H 11/11/17 05:20 Band Neutrophils % 14 % (0-10) H 11/11/17 05:20 Lymphocytes % (Manual) 8 % (13-43) L 11/11/17 05:20 Monocytes % (Manual) 5 % (4-9) 11/09/17 04:22 Metamyelocytes % 4 11/09/17 04:22 Plt Morphology Comment Normal (NORMAL) 11/12/17 05:23 RBC Morphology Abnormal (NORMAL) A 11/12/17 05:23 Hypochromasia Slight A 11/12/17 05:23 INR Target Range - 11/08/17 10:53 INR 0.98 (0.8-1.3) 11/08/17 10:53 APTT 23.9 SECONDS (22.9-36.5) 11/08/17 10:53 PTT Comment - 11/08/17 10:53 Sodium 140 mmol/L (136-145) 11/12/17 05:23 Corrected Sodium 141 mmol/L (136-145) 11/12/17 05:23 Potassium 3.1 mmol/L (3.5-5.1) L 11/12/17 05:23 Chloride 107 mmol/L (98-107) 11/12/17 05:23 Carbon Dioxide 25.3 mmol/L (21-32) 11/12/17 05:23 BUN 11 mg/dL (7-18) 11/12/17 05:23 Creatinine 0.79 mg/dL (0.55-1.02) 11/12/17 05:23 Est GFR (MDRD) Af Amer > 60 (>60) 11/12/17 05:23 Est GFR (MDRD) Non-Af > 60 (>60) 11/12/17 05:23 Glucose 130 mg/dL (65-99) H 11/12/17 05:23 Calcium 8.8 mg/dL (8.5-10.1) 11/12/17 05:23 Corrected Calcium 10.3 mg/dL (8.5-10.1) H 11/12/17 05:23 Magnesium 1.5 mg/dL (1.7-2.9) L 11/12/17 05:23 Total Bilirubin 0.50 mg/dL (0.2-1.0) 11/12/17 05:23 AST 20 Units/L (15-37) 11/12/17 05:23 ALT 25 Units/L (12-78) 11/12/17 05:23 Alkaline Phosphatase 61 Units/L (46-116) 11/12/17 05:23 Creatine Kinase 43 Units/L (26-192) 11/08/17 10:53 CK-MB (CK-2) < 1.0 ng/mL (0-4.0) 11/08/17 10:53 CK/CKMB % Calc 2.3 % (<4) 11/08/17 10:53 Troponin I < 0.02 ng/mL (0-1.5) 11/08/17 10:53 Total Protein 5.2 g/dL (6.4-8.2) L 11/12/17 05:23 Albumin 2.1 g/dL (3.4-5.0) L 11/12/17 05:23 Globulin 3.1 g/dL (2.5-4.5) 11/12/17 05:23 Albumin/Globulin Ratio 0.7 Ratio (1.1-2.1) L 11/12/17 05:23 Amylase 71 Units/L (25-115) 11/08/17 10:53 Lipase 118 Units/L (73-393) 11/08/17 10:53 Specimen Type Catherized urine 11/08/17 13:02 Urine Color Yellow (YELLOW) 11/08/17 13:02 Urine Appearance Slightly hazy (CLEAR) 11/08/17 13:02 Urine pH 7.0 (5.0 - 8.0) 11/08/17 13:02 Ur Specific [place] 1.020 (1.000-1.030) 11/08/17 13:02 Urine Protein Negative (NEGATIVE) 11/08/17 13:02 Urine Glucose (UA) Negative (NEGATIVE) 11/08/17 13:02 Urine Ketones Negative (NEGATIVE) 11/08/17 13:02 Urine Occult Blood Negative (NEGATIVE) 11/08/17 13:02 Urine Nitrite Negative (NEGATIVE) 11/08/17 13:02 Urine Bilirubin Negative (NEGATIVE) 11/08/17 13:02 Urine Urobilinogen Normal (NORMAL) 11/08/17 13:02 Ur Leukocyte Esterase 1+ (NEGATIVE) 11/08/17 13:02 Urine RBC 0-2 /HPF (NONE SEEN) 11/08/17 13:02 Urine WBC 1-5 /HPF (NONE SEEN) 11/08/17 13:02 Ur Squamous Epith Cells Few /HPF (NEGATIVE) 11/08/17 13:02 Amorphous Sediment 2+ /HPF (NEGATIVE) 11/08/17 13:02 Urine Bacteria Trace /HPF (NEGATIVE) 11/08/17 13:02 Urine Mucus Rare /HPF (NEGATIVE) 11/08/17 13:02 Ur Culture Indicated? No/not indicated 11/08/17 13:02 Tissue Pathology To follow 11/08/17 19:00 - Assessment and Plan 1: PO laparatomy ,lysis of adhesions and Vanessa's procedure for ruptured Diverticulitis. peritonitis . recent back surgery. 2: same IVF and ATB. DVT prophylaxis. OOB with binde. soft diet. given SPA today in addition to K and Mg.. DAVID was removed. - Problem Patient Problems: Patient Problems Acute abdominal pain in right lower quadrant (Acute) R10.31
[2017-11-12] MEDS: CRESTOR TAB 10 MG PO SCH (20:33)
[2017-11-12] MEDS: ATIVAN TAB 0.5 MG PO PRN (22:32)
[2017-11-13] MEDS: NORCO 10/325 TAB PO PRN ×2 (03:10→09:21)
[2017-11-13] MEDS: FLAGYL IV PREMIX 500 MG BAG 500 MG/100 ML BAG IV SCH ×4 (03:10→21:36)
[2017-11-13] MEDS: D5 1/2 NS 1000 ML 1,000 ML IV SCH ×2 (03:23→10:31)
[2017-11-13] MEDS ORDERED: NS 100 ML IV + SPIKE MINIBAG* 100 ML IV ONE ×3 (05:05→21:29)
[2017-11-13] MEDS: ZOSYN VIAL 3.375 GM IV SCH ×3 (05:15→21:38)
[2017-11-13 06:42] LABS: BASOPHILS % (AUTO) 0.5 % (0.2-1.0); EOSINOPHILS # (AUTO) 0.2 x10^3/uL (0.0-0.2); EOSINOPHILS % (AUTO) 2.9 % (0.9-2.9); HEMATOCRIT 20.3 % (36.0-47.0); HEMOGLOBIN 7.1 g/dL (12.0-16.0); LYMPHOCYTES # (AUTO) 1.1 X10^3/uL (1.3-2.9); LYMPHOCYTES % (AUTO) 15.1 % (21.0-51.0); MEAN CORPUSCULAR HEMOGLOBIN 29.1 pg (27.0-34.0); MEAN CORPUSCULAR HGB CONC 34.9 g/dL (33.0-35.0); MEAN CORPUSCULAR VOLUME 83.1 fL (80.0-100.0); MEAN PLATELET VOLUME 8.6 fL (7.4-11.0); MONOCYTES # (AUTO) 0.9 x10^3/uL (0.3-0.8); MONOCYTES % (AUTO) 11.8 % (0.0-13.0); NEUTROPHILS # (AUTO) 5.2 x10^3/uL (2.2-4.8); NEUTROPHILS % (AUTO) 69.7 % (42.0-75.0); PLATELET COUNT 146 X10^3/uL (150.0-450.0); RED BLOOD COUNT 2.44 X10^6/uL (3.5-5.4); RED CELL DISTRIBUTION WIDTH 14.5 % (11.6-16.5); WHITE BLOOD COUNT 7.5 X10^3/uL (3.6-10.0)
[2017-11-13 06:47] LABS: ALANINE AMINOTRANSFERASE 24 Units/L (12-78); ALBUMIN 2.4 g/dL (3.4-5.0); ALKALINE PHOSPHATASE 61 Units/L (46-116); ASPARTATE AMINO TRANSFERASE 20 Units/L (15-37); BLOOD UREA NITROGEN 12 mg/dL (7-18); CALCIUM 8.5 mg/dL (8.5-10.1); CARBON DIOXIDE 23.6 mmol/L (21-32); CHLORIDE 108 mmol/L (98-107); COR CA(FOR HYPOALB) 9.8 mg/dL (8.5-10.1); COR NA(FOR HYPERGLY) 141 mmol/L (136-145); CREATININE 0.79 mg/dL (0.55-1.02); SODIUM 141 mmol/L (136-145); TOTAL PROTEIN 5.4 g/dL (6.4-8.2); eGFR BLACK RACES > 60 (>60); eGFR NON BLACK RACES > 60 (>60)
[2017-11-13 07:04] LABS: HYPOCHROMASIA 1+; PLATELET MORPHOLOGY COMMENT NORMAL (NORMAL)
[2017-11-13] MEDS ORDERED: NS 500 ML IV 500 ML IV ONE ×2 (08:19→20:07)
[2017-11-13] MEDS ORDERED: TYLENOL 325 MG TAB PO PRN (08:19)
[2017-11-13] MEDS ORDERED: BENADRYL INJ 50 MG VIAL IVP PRN (08:19)
[2017-11-13] MEDS: PROzac PO SCH (09:21)
[2017-11-13] MEDS: EVISTA PO SCH (09:22)
[2017-11-13] MEDS: TAB-A-VITE PO SCH (09:22)
[2017-11-13] MEDS: PROTONIX INJ 40 MG VIAL IVP SCH (09:22)
[2017-11-13] MEDS: LOVENOX INJ 40 MG SYR SC SCH (09:22)
[2017-11-13] MEDS: FLONASE NASAL SPRAY ENOSTRIL SCH (09:25)
[2017-11-13] MEDS ORDERED: LASIX IVP ONE ×2 (13:07→16:08)
--- NOTE | 2017-11-13 13:53 | RAD ---
HISTORY: Shortness of breath Study: Chest AP portable Comparison: 11/08/2017 Findings: The heart is mildly enlarged. Mild pulmonary venous congestion is present. The lungs are hypo inflate d which causes some crowding of lung markings. There is abnormal parenchymal density in the right nasreen g base possibly representing pneumonia or developing atelectasis. No pleural effusions are identified . The remainder of the lung ruiz are clear. The bony thorax is unremarkable. IMPRESSION: Mild cardiomegaly with interval development of some pulmonary venous congestion when compared with th e prior examination Abnormal parenchymal density in the right lung base which could represent developing pneumonia or dev eloping atelectasis. Mild hypo inflation Reported By:
[2017-11-13] MEDS ORDERED: DUONEB 0.5 MG/3 MG ONE (15:07)
[2017-11-13] MEDS ORDERED: SALINE 3% 15 ML NEB TX ONE (15:07)
[2017-11-13] MEDS: LEVAQUIN PREMIX IV 750 MG 750 MG/150 ML BAG IV SCH (15:15)
[2017-11-13] MEDS: DUONEB 0.5 MG/3 MG NEB SCH ×2 (15:45→20:55)
--- NOTE | 2017-11-13 16:28 | DR.PROGNOT ---
Hospital Progress Notes - Progress Note for Day of: Progress Note Date: 11/13/17 - Chief Complaint Chief Complaint: PO laparatomy ,lysis of adhesions and Vanessa's procrdure. still somewhat anxious and tired but No SOB, no CP. appetite is better. occasional palpitation. colostomy is functioning today.. moderate anemia , hypokalemia . pathology report ruptured diverticulitis , no malignancy.. - Past Medical Family Social History Past Med/Fam/Surg Hx: No changes since H&P Allergies: Allergies Iodine and Iodide Containing Produc Allergy (Verified 11/08/17 10:49) meperidine [From Demerol] Allergy (Verified 11/08/17 10:49) - Vital Signs Vital Signs: Temperature 98.1 F Pulse Rate [Left Brachial] 70 Pulse Rate [Apical] 92 Pulse Rate [Right Brachial] 135 Pulse Rate 72 Respiratory Rate 20 Blood Pressure [Left Arm] 128/67 Blood Pressure [Right Arm] 111/54 Blood Pressure 121/66 O2 Sat by Pulse Oximetry 98 - Physical Exam Cardiovascular: Tachycardia GI:Auscultation: Normal, Other (no wound infection or drainage.) GI: Tenderness: Diffuse (soft abdomen with diffuse tenderness , no wound infection , small amount of stool in colostomy bag.) Mood Description: Calm Speech Pattern: Clear, Appropriate - Laboratory and Diagnostics Result Diagrams: 11/13/17 05:47 11/13/17 05:47 Labs: 11/13/17 16:06 Sputum - Expectorated Sputum - Final 11/08/17 16:24 Abdomen Gram Stain - Final 11/08/17 16:24 Abdomen Wound Culture - Final Klebsiella Oxytoca 11/08/17 15:40 Abdomen Gram Stain - Final 11/08/17 15:40 Abdomen Wound Culture - Final Escherichia Coli Laboratory WBC 7.5 X10^3/uL (3.6-10.0) 11/13/17 05:47 RBC 2.44 X10^6/uL (3.5-5.4) L 11/13/17 05:47 Hgb 7.1 g/dL (12.0-16.0) L 11/13/17 05:47 Hct 20.3 % (36.0-47.0) L 11/13/17 05:47 MCV 83.1 fL (80.0-100.0) 11/13/17 05:47 MCH 29.1 pg (27.0-34.0) 11/13/17 05:47 MCHC 34.9 g/dL (33.0-35.0) 11/13/17 05:47 RDW 14.5 % (11.6-16.5) 11/13/17 05:47 Plt Count 146 X10^3/uL (150.0-450.0) L 11/13/17 05:47 Plt Count Comment Adequate (ADEQUATE) 11/13/17 05:47 MPV 8.6 fL (7.4-11.0) 11/13/17 05:47 Neut % (Auto) 69.7 % (42.0-75.0) 11/13/17 05:47 Lymph % (Auto) 15.1 % (21.0-51.0) L 11/13/17 05:47 [place] % (Auto) 11.8 % (0.0-13.0) 11/13/17 05:47 Eos % (Auto) 2.9 % (0.9-2.9) 11/13/17 05:47 Baso % (Auto) 0.5 % (0.2-1.0) 11/13/17 05:47 Neut # (Auto) 5.2 x10^3/uL (2.2-4.8) H 11/13/17 05:47 Lymph # (Auto) 1.1 X10^3/uL (1.3-2.9) L 11/13/17 05:47 [place] # (Auto) 0.9 x10^3/uL (0.3-0.8) H 11/13/17 05:47 Eos # (Auto) 0.2 x10^3/uL (0.0-0.2) 11/13/17 05:47 Baso # (Auto) 0.0 X10^3/uL (0.0-0.1) 11/13/17 05:47 Absolute Nucleated RBC 0.0 /100WBC 11/13/17 05:47 Total Counted 100 11/11/17 05:20 Neutrophils % (Manual) 78 % (39-76) H 11/11/17 05:20 Band Neutrophils % 14 % (0-10) H 11/11/17 05:20 Lymphocytes % (Manual) 8 % (13-43) L 11/11/17 05:20 Monocytes % (Manual) 5 % (4-9) 11/09/17 04:22 Metamyelocytes % 4 11/09/17 04:22 Plt Morphology Comment Normal (NORMAL) 11/13/17 05:47 RBC Morphology Abnormal (NORMAL) A 11/13/17 05:47 Hypochromasia 1+ A 11/13/17 05:47 INR Target Range - 11/08/17 10:53 INR 0.98 (0.8-1.3) 11/08/17 10:53 APTT 23.9 SECONDS (22.9-36.5) 11/08/17 10:53 PTT Comment - 11/08/17 10:53 Sodium 141 mmol/L (136-145) 11/13/17 05:47 Corrected Sodium 141 mmol/L (136-145) 11/13/17 05:47 Potassium 3.3 mmol/L (3.5-5.1) L 11/13/17 05:47 Chloride 108 mmol/L (98-107) H 11/13/17 05:47 Carbon Dioxide 23.6 mmol/L (21-32) 11/13/17 05:47 BUN 12 mg/dL (7-18) 11/13/17 05:47 Creatinine 0.79 mg/dL (0.55-1.02) 11/13/17 05:47 Est GFR (MDRD) Af Amer > 60 (>60) 11/13/17 05:47 Est GFR (MDRD) Non-Af > 60 (>60) 11/13/17 05:47 Glucose 117 mg/dL (65-99) H 11/13/17 05:47 Calcium 8.5 mg/dL (8.5-10.1) 11/13/17 05:47 Corrected Calcium 9.8 mg/dL (8.5-10.1) 11/13/17 05:47 Magnesium 1.5 mg/dL (1.7-2.9) L 11/13/17 05:47 Total Bilirubin 0.50 mg/dL (0.2-1.0) 11/13/17 05:47 AST 20 Units/L (15-37) 11/13/17 05:47 ALT 24 Units/L (12-78) 11/13/17 05:47 Alkaline Phosphatase 61 Units/L (46-116) 11/13/17 05:47 Creatine Kinase 43 Units/L (26-192) 11/08/17 10:53 CK-MB (CK-2) < 1.0 ng/mL (0-4.0) 11/08/17 10:53 CK/CKMB % Calc 2.3 % (<4) 11/08/17 10:53 Troponin I < 0.02 ng/mL (0-1.5) 11/08/17 10:53 Total Protein 5.4 g/dL (6.4-8.2) L 11/13/17 05:47 Albumin 2.4 g/dL (3.4-5.0) L 11/13/17 05:47 Globulin 3.0 g/dL (2.5-4.5) 11/13/17 05:47 Albumin/Globulin Ratio 0.8 Ratio (1.1-2.1) L 11/13/17 05:47 Amylase 71 Units/L (25-115) 11/08/17 10:53 Lipase 118 Units/L (73-393) 11/08/17 10:53 Specimen Type Catherized urine 11/08/17 13:02 Urine Color Yellow (YELLOW) 11/08/17 13:02 Urine Appearance Slightly hazy (CLEAR) 11/08/17 13:02 Urine pH 7.0 (5.0 - 8.0) 11/08/17 13:02 Ur Specific [place] 1.020 (1.000-1.030) 11/08/17 13:02 Urine Protein Negative (NEGATIVE) 11/08/17 13:02 Urine Glucose (UA) Negative (NEGATIVE) 11/08/17 13:02 Urine Ketones Negative (NEGATIVE) 11/08/17 13:02 Urine Occult Blood Negative (NEGATIVE) 11/08/17 13:02 Urine Nitrite Negative (NEGATIVE) 11/08/17 13:02 Urine Bilirubin Negative (NEGATIVE) 11/08/17 13:02 Urine Urobilinogen Normal (NORMAL) 11/08/17 13:02 Ur Leukocyte Esterase 1+ (NEGATIVE) 11/08/17 13:02 Urine RBC 0-2 /HPF (NONE SEEN) 11/08/17 13:02 Urine WBC 1-5 /HPF (NONE SEEN) 11/08/17 13:02 Ur Squamous Epith Cells Few /HPF (NEGATIVE) 11/08/17 13:02 Amorphous Sediment 2+ /HPF (NEGATIVE) 11/08/17 13:02 Urine Bacteria Trace /HPF (NEGATIVE) 11/08/17 13:02 Urine Mucus Rare /HPF (NEGATIVE) 11/08/17 13:02 Ur Culture Indicated? No/not indicated 11/08/17 13:02 Tissue Pathology To follow 11/08/17 19:00 Blood Type O POSITIVE 11/13/17 08:36 Antibody Screen Negative 11/13/17 08:36 Crossmatch See Detail 11/13/17 08:36 - Assessment and Plan 1: PO laparatomy ,lysis of adhesions and Vanessa's procedure for ruptured Diverticulitis. peritonitis . recent back surgery. 2: same IVF and ATB. DVT prophylaxis. OOB with binde. soft diet. transfuse one unit PC 3: Pt could be D/C in one to two days with VNA and will follow in 10 days . - Problem Patient Problems: Patient Problems Acute abdominal pain in right lower quadrant (Acute) R10.31
[2017-11-13] MEDS: ATIVAN TAB 0.5 MG PO PRN (19:31)
[2017-11-13] MEDS: TORADOL 15 MG VIAL IVP PRN (20:11)
[2017-11-13] MEDS: CRESTOR TAB 10 MG PO SCH ×2 (21:38→21:40)
[2017-11-13] MEDS: PREDNISONE TAB 10 MG PO SCH (21:38)
[2017-11-13] MEDS ORDERED: ATIVAN INJ 2 MG VIAL IVP PRN (21:41)
[2017-11-13] MEDS ORDERED: ATIVAN INJ 2 MG VIAL IVP ONE (21:41)
[2017-11-13] MEDS ORDERED: LASIX ONE (22:52)
[2017-11-14] MEDS: FLAGYL IV PREMIX 500 MG BAG 500 MG/100 ML BAG IV SCH ×2 (03:11→12:41)
[2017-11-14] MEDS: PREDNISONE TAB 10 MG PO SCH ×2 (03:11→09:10)
[2017-11-14] MEDS ORDERED: NS 100 ML IV + SPIKE MINIBAG* 100 ML IV ONE (05:15)
[2017-11-14] MEDS: ZOSYN VIAL 3.375 GM IV SCH (05:55)
[2017-11-14 06:25] LABS: BASOPHILS % (AUTO) 0.2 % (0.2-1.0); HEMOGLOBIN 9.6 g/dL (12.0-16.0); LYMPHOCYTES # (AUTO) 0.8 X10^3/uL (1.3-2.9); MEAN CORPUSCULAR HEMOGLOBIN 28.4 pg (27.0-34.0); MONOCYTES # (AUTO) 0.3 x10^3/uL (0.3-0.8); NEUTROPHILS # (AUTO) 6.2 x10^3/uL (2.2-4.8); RED BLOOD COUNT 3.39 X10^6/uL (3.5-5.4); WHITE BLOOD COUNT 7.3 X10^3/uL (3.6-10.0)
[2017-11-14 06:31] LABS: EOSINOPHILS % (AUTO) 0.1 % (0.9-2.9); HEMATOCRIT 27.8 % (36.0-47.0); LYMPHOCYTES % (AUTO) 10.8 % (21.0-51.0); MEAN CORPUSCULAR HGB CONC 34.6 g/dL (33.0-35.0); MEAN PLATELET VOLUME 8.7 fL (7.4-11.0); MONOCYTES % (AUTO) 3.8 % (0.0-13.0); NEUTROPHILS % (AUTO) 85.1 % (42.0-75.0); PLATELET COUNT 175 X10^3/uL (150.0-450.0)
[2017-11-14 06:51] LABS: ALANINE AMINOTRANSFERASE 22 Units/L (12-78); ALBUMIN 2.3 g/dL (3.4-5.0); ALKALINE PHOSPHATASE 64 Units/L (46-116); ASPARTATE AMINO TRANSFERASE 22 Units/L (15-37); BLOOD UREA NITROGEN 16 mg/dL (7-18); CALCIUM 8.8 mg/dL (8.5-10.1); CARBON DIOXIDE 24.2 mmol/L (21-32); CHLORIDE 107 mmol/L (98-107); COR CA(FOR HYPOALB) 10.2 mg/dL (8.5-10.1); COR NA(FOR HYPERGLY) 143 mmol/L (136-145); CREATININE 0.78 mg/dL (0.55-1.02); PLATELET MORPHOLOGY COMMENT NORMAL (NORMAL); SODIUM 141 mmol/L (136-145); TOTAL PROTEIN 5.7 g/dL (6.4-8.2); eGFR BLACK RACES > 60 (>60); eGFR NON BLACK RACES > 60 (>60)
[2017-11-14 08:28] VITALS: BP 141/70
[2017-11-14] MEDS: XOPENEX 1.25 MG/3 ML NEBULE NEB SCH ×2 (08:50→13:05)
[2017-11-14] MEDS ORDERED: BENADRYL CAP 50 MG PO SCH (09:22)
[2017-11-14] MEDS ORDERED: NS 250 ML IV 250 ML IV ONE (10:18)
--- NOTE | 2017-11-14 11:42 | CT ---
HISTORY: Shortness of breath Study: CTA chest with contrast for pulmonary embolism Comparison: None Technique: Axial post-contrast images with coronal and sagittal and three-dimensional maximum intensi ty projection images performed. Dose reduction procedures were used with mA/kv adjusted for body size . Findings: There is no evidence for acute pulmonary thromboembolic disease. Examination of the mediastinum demon strated no evidence for mediastinal masses, enlarged mediastinal adenopathy, or enlarged hilar adenop athy. Bilateral moderately large pleural effusions are identified. No chest wall or axillary abnormal ity is identified. Those portions of the upper abdominal organs visualized were within normal limits. Anasarca is present. Examination of the lung ruiz demonstrated peripheral alveolar infiltrate in t he left upper lobe suggestive of pneumonia. There is atelectatic change underlying the pleural effusi ons in the lower lobes bilaterally. No nodules, masses, peribronchial thickening, or bronchiectasis i s identified. IMPRESSION: No evidence for acute pulmonary thromboembolic disease Left upper lobe pneumonia Bilateral lower lobe atelectatic changes underlying bilateral moderately large pleural effusions Reported By:
[2017-11-14] MEDS: D5 1/2 NS 1000 ML 1,000 ML IV SCH (12:33)
[2017-11-14] MEDS: LEVAQUIN PREMIX IV 750 MG 750 MG/150 ML BAG IV SCH (12:41)
[2017-11-14] MEDS: LOVENOX INJ 40 MG SYR SC SCH (12:41)
[2017-11-14] MEDS: PROTONIX INJ 40 MG VIAL IVP SCH (12:41)
[2017-11-14] MEDS: TAB-A-VITE PO SCH (12:42)
[2017-11-14] MEDS: PROzac PO SCH (12:42)
[2017-11-14] MEDS: EVISTA PO SCH (12:42)
[2017-11-14] MEDS: FLONASE NASAL SPRAY ENOSTRIL SCH (12:43)
[2017-11-14] MEDS: TORADOL 15 MG VIAL IVP PRN (13:02)
[2017-11-14] MEDS ORDERED: PREVNAR 13 IM ONE (14:55)
== END 2017-11-14 15:35 | disposition home health service (06) | DRG 391 ==
LOC: ER 10:48 → MED/SURG 13:31 → UNDOADMIN 13:31 → ICU 19:19 → MED/SURG 11-09 15:05
PROVIDERS: ADMIT Internal Medicine; ATTEND Internal Medicine
PROC: 0D1N0Z4 Bypass Sigmoid Colon to Cutaneous, Open Approach (ICD-10-PCS; 2017-11-08)
PROC: 0DNN0ZZ Release Sigmoid Colon, Open Approach (ICD-10-PCS; 2017-11-08)
PROC: 0DBP0ZZ Excision of Rectum, Open Approach (ICD-10-PCS; principal; 2017-11-08 14:30)
PROC: 30233N1 Transfusion of Nonautologous Red Blood Cells into Peripheral Vein, Percutaneous Approach (ICD-10-PCS; 2017-11-13)
PROC: 3E0234Z Introduction of Serum, Toxoid and Vaccine into Muscle, Percutaneous Approach (ICD-10-PCS; 2017-11-14)
DX: K57.20 Diverticulitis of large intestine with perforation and abscess without bleeding (principal); K65.8 Other peritonitis; K56.51 Intestinal adhesions [bands], with partial obstruction; Z98.890 Other specified postprocedural states; E87.6 Hypokalemia; R26.89 Other abnormalities of gait and mobility; R10.84 Generalized abdominal pain; R42 Dizziness and giddiness; R10.31 Right lower quadrant pain; B96.29 Other Escherichia coli [E. coli] as the cause of diseases classified elsewhere; B96.89 Other specified bacterial agents as the cause of diseases classified elsewhere; K66.0 Peritoneal adhesions (postprocedural) (postinfection); D64.89 Other specified anemias; Z23 Encounter for immunization
CPT/HCPCS: 36415; 36430; 51702; 70450; 71045; 71275; 74018; 74176; 80053; 81001; 82150; 82550; 82553; 83690; 83735; 84484; 85025; 85610; 85730; 86850; 86900; 86901; 86922; 87070; 87075; 87077; 87186; 87205; 93005; 93010; 94640; 96365; 96367; 96374; 96375; 99284; A4216; A4222; C9113; P9016; P9047; S0028; S0030; 90670; J0330; J1170; J1200; J1650; J1940; J1956; J2001; J2060; J2270; J2405; J2543; J2710; J3010; J3480; J3490; J7042; J7120; J7506; J7620

== ENCOUNTER → 2017-11-27 | Outpatient (CLI) | payer BC ==
[2017-11-14 08:28] VITALS: BP 141/70
[2017-11-27 16:14] LABS: BASOPHILS # (AUTO) 0.1 X10^3/uL (0.0-0.1); BASOPHILS % (AUTO) 0.8 % (0.2-1.0); EOSINOPHILS # (AUTO) 0.3 x10^3/uL (0.0-0.2); EOSINOPHILS % (AUTO) 4.3 % (0.9-2.9); HEMATOCRIT 32.5 % (36.0-47.0); HEMOGLOBIN 10.7 g/dL (12.0-16.0); LYMPHOCYTES # (AUTO) 1.5 X10^3/uL (1.3-2.9); LYMPHOCYTES % (AUTO) 18.6 % (21.0-51.0); MEAN CORPUSCULAR HEMOGLOBIN 26.8 pg (27.0-34.0); MEAN CORPUSCULAR VOLUME 81.3 fL (80.0-100.0); MEAN PLATELET VOLUME 6.7 fL (7.4-11.0); MONOCYTES # (AUTO) 0.6 x10^3/uL (0.3-0.8); MONOCYTES % (AUTO) 7.1 % (0.0-13.0); NEUTROPHILS # (AUTO) 5.6 x10^3/uL (2.2-4.8); NEUTROPHILS % (AUTO) 69.2 % (42.0-75.0); PLATELET COUNT 797 X10^3/uL (150.0-450.0); RED BLOOD COUNT 3.99 X10^6/uL (3.5-5.4); RED CELL DISTRIBUTION WIDTH 15.7 % (11.6-16.5)
[2017-11-27 16:24] LABS: ALANINE AMINOTRANSFERASE 61 Units/L (12-78); ALBUMIN 2.9 g/dL (3.4-5.0); ALKALINE PHOSPHATASE 57 Units/L (46-116); ASPARTATE AMINO TRANSFERASE 70 Units/L (15-37); BLOOD UREA NITROGEN 13 mg/dL (7-18); CALCIUM 10.1 mg/dL (8.5-10.1); CARBON DIOXIDE 27.8 mmol/L (21-32); CHLORIDE 105 mmol/L (98-107); COR NA(FOR HYPERGLY) 141 mmol/L (136-145); CREATININE 0.83 mg/dL (0.55-1.02); SODIUM 141 mmol/L (136-145); TOTAL PROTEIN 8.4 g/dL (6.4-8.2); eGFR BLACK RACES > 60 (>60); eGFR NON BLACK RACES > 60 (>60)
[2017-11-27 16:38] LABS: GIANT PLATELET FEW; HYPOCHROMASIA SLIGHT; PLATELET MORPHOLOGY COMMENT ABNORMAL (NORMAL)
[2017-11-27 16:52] LABS: IRON 38 ug/dL (50-175); TOTAL IRON BINDING CAPACITY 239 ug/dL (250-450)
== END ==
LOC: LAB 15:38
PROVIDERS: ATTEND Surgery
DX: K57.32 Diverticulitis of large intestine without perforation or abscess without bleeding (principal); D64.9 Anemia, unspecified; Z79.899 Other long term (current) drug therapy
CPT/HCPCS: 36415; 80053; 82607; 82746; 83540; 83550; 85025

== ENCOUNTER → 2017-12-16 | Outpatient (CLI) | payer BC ==
--- NOTE | 2017-12-17 07:36 | US ---
HISTORY: Cellulitis abdominal wall Study: Ultrasound anterior abdominal wall Comparison: None Technique: Multiple grayscale sonographic images were obtained. Findings: Sonographic evaluation was focused to the anterior abdominal wall. At the area of the patient's incis ion there is a slightly complex 4.6 x 1.8 by 1.4 cm fluid collection in the anterior abdominal wall w hich could represent seroma or abscess. This is within the subcutaneous tissues. IMPRESSION: 4.6 x 1.8 x 1.4 cm complex fluid collection in the subcutaneous tissues in the area of the patient's incision. This could represent a seroma or abscess. Reported By:
== END ==
LOC: RAD 16:52
PROVIDERS: ATTEND Surgery
DX: L03.311 Cellulitis of abdominal wall (principal); R93.5 Abnormal findings on diagnostic imaging of other abdominal regions, including retroperitoneum
CPT/HCPCS: 76700

== ENCOUNTER 2018-02-06 09:56 | Inpatient (IN) ==
[2018-02-06] MEDS ORDERED: LR 1000 ML IV 1,000 ML IV ONE ×4 (10:25→15:40)
[2018-02-06] MEDS ORDERED: ANCEF 1 GRAM IV PREMIX* 1 G/50 ML BAG IV ONE (10:26)
[2018-02-06 11:16] LABS: BASOPHILS % (AUTO) 0.6 % (0.2-1.0); EOSINOPHILS # (AUTO) 0.1 x10^3/uL (0.0-0.2); EOSINOPHILS % (AUTO) 1.6 % (0.9-2.9); HEMATOCRIT 38.6 % (36.0-47.0); LYMPHOCYTES # (AUTO) 2.1 X10^3/uL (1.3-2.9); LYMPHOCYTES % (AUTO) 35.8 % (21.0-51.0); MEAN CORPUSCULAR HEMOGLOBIN 29.6 pg (27.0-34.0); MEAN CORPUSCULAR HGB CONC 33.6 g/dL (33.0-35.0); MEAN CORPUSCULAR VOLUME 88.2 fL (80.0-100.0); MEAN PLATELET VOLUME 8.7 fL (7.4-11.0); MONOCYTES # (AUTO) 0.5 x10^3/uL (0.3-0.8); MONOCYTES % (AUTO) 9.1 % (0.0-13.0); NEUTROPHILS # (AUTO) 3.1 x10^3/uL (2.2-4.8); NEUTROPHILS % (AUTO) 52.9 % (42.0-75.0); PLATELET COUNT 219 X10^3/uL (150.0-450.0); RED BLOOD COUNT 4.37 X10^6/uL (3.5-5.4); WHITE BLOOD COUNT 5.9 X10^3/uL (3.6-10.0)
[2018-02-06 11:22] LABS: ALANINE AMINOTRANSFERASE 33 Units/L (12-78); ALBUMIN 3.9 g/dL (3.4-5.0); ALKALINE PHOSPHATASE 60 Units/L (46-116); ASPARTATE AMINO TRANSFERASE 29 Units/L (15-37); BLOOD UREA NITROGEN 6 mg/dL (7-18); CALCIUM 10.4 mg/dL (8.5-10.1); CARBON DIOXIDE 27.5 mmol/L (21-32); CHLORIDE 106 mmol/L (98-107); CREATININE 0.79 mg/dL (0.55-1.02); SODIUM 142 mmol/L (136-145); eGFR NON BLACK RACES > 60 (>60)
[2018-02-06] MEDS ORDERED: MARCAINE 0.25% INJ ONE (12:16)
[2018-02-06] MEDS ORDERED: FENTANYL INJ 250 mcg ONE (12:16)
[2018-02-06] MEDS ORDERED: ADRENALINE CHL INJ ONE (12:16)
[2018-02-06] MEDS ORDERED: LEVAQUIN PREMIX IV 500 MG 500 MG/100 ML BAG IV ONE (13:09)
[2018-02-06] MEDS ORDERED: BACITRACIN VIAL ONE (13:14)
[2018-02-06] MEDS ORDERED: DIPRIVAN VIAL 40 ML ONE (14:16)
[2018-02-06] MEDS ORDERED: Q PUMP EPI PRN (14:57)
[2018-02-06] MEDS ORDERED: MARCAINE 0.5% IJ PRN ×2 (14:57)
[2018-02-06] MEDS ORDERED: NS IJ PRN ×2 (14:57)
[2018-02-06] MEDS ORDERED: NORCURON INJ 10 MG VIAL ONE ×2 (15:03→15:22)
[2018-02-06] MEDS ORDERED: NEO-SYNEPHRINE INJ ONE (15:03)
[2018-02-06] MEDS ORDERED: EPHEDRINE SULFATE INJ ONE (15:03)
[2018-02-06] MEDS ORDERED: QUELICIN (OR ANECTINE) ONE (15:03)
[2018-02-06] MEDS ORDERED: ROBINUL ONE (15:03)
[2018-02-06] MEDS ORDERED: NEOSTIGMINE INJ ONE (15:03)
[2018-02-06] MEDS ORDERED: VERSED ONE (15:03)
[2018-02-06] MEDS ORDERED: SUPRANE IN ONE (15:03)
[2018-02-06] MEDS ORDERED: XYLOCAINE 2 % (PLAIN) ONE (15:03)
[2018-02-06] MEDS ORDERED: ZOFRAN INJ 4 MG VIAL ONE ×2 (15:03→16:42)
[2018-02-06] MEDS ORDERED: LTA KIT LIDOCAINE 4% ONE (15:03)
[2018-02-06] MEDS ORDERED: BENADRYL INJ 50 MG VIAL IVP PRN (16:28)
[2018-02-06] MEDS ORDERED: ZOFRAN INJ 4 MG VIAL IVP PRN (16:28)
[2018-02-06] MEDS ORDERED: REGLAN INJ 10 MG VIAL IVP PRN (16:28)
[2018-02-06] MEDS ORDERED: DILAUDID INJ IVP PRN ×2 (16:28→16:49)
[2018-02-06] MEDS ORDERED: PHENERGAN INJ 25 MG IVP PRN (16:28)
--- NOTE | 2018-02-06 16:37 | OR.GENERIC ---
Post-Op Note Generic - Post-Op Note Operative Report: exploratory laparotomy , lysis of adhesions ,mobelization of splenic flexure . . closure of Hartma's procedure for ruptured diverticulitis finding abdominal adhesions , moderate diverticulosis . EBL 300 cc. will keep ATB for 24 h . DVT prophylaxis
[2018-02-06] MEDS ORDERED: LEVAQUIN PREMIX IV 250 MG 250 MG/50 ML BAG IV ONE (16:44)
[2018-02-06 17:14] LABS: BASOPHILS % (AUTO) 0.3 % (0.2-1.0); EOSINOPHILS % (AUTO) 0.1 % (0.9-2.9); HEMATOCRIT 30.6 % (36.0-47.0); HEMOGLOBIN 10.3 g/dL (12.0-16.0); LYMPHOCYTES # (AUTO) 1.3 X10^3/uL (1.3-2.9); LYMPHOCYTES % (AUTO) 14.4 % (21.0-51.0); MEAN CORPUSCULAR HEMOGLOBIN 29.7 pg (27.0-34.0); MEAN CORPUSCULAR HGB CONC 33.5 g/dL (33.0-35.0); MEAN CORPUSCULAR VOLUME 88.6 fL (80.0-100.0); MEAN PLATELET VOLUME 8.2 fL (7.4-11.0); MONOCYTES # (AUTO) 0.5 x10^3/uL (0.3-0.8); MONOCYTES % (AUTO) 5.8 % (0.0-13.0); NEUTROPHILS % (AUTO) 79.4 % (42.0-75.0); PLATELET COUNT 168 X10^3/uL (150.0-450.0); RED BLOOD COUNT 3.46 X10^6/uL (3.5-5.4); RED CELL DISTRIBUTION WIDTH 17.6 % (11.6-16.5); WHITE BLOOD COUNT 8.8 X10^3/uL (3.6-10.0)
[2018-02-06 17:21] LABS: ALANINE AMINOTRANSFERASE 19 Units/L (12-78); ALBUMIN 2.3 g/dL (3.4-5.0); ALKALINE PHOSPHATASE 39 Units/L (46-116); ASPARTATE AMINO TRANSFERASE 20 Units/L (15-37); BLOOD UREA NITROGEN 7 mg/dL (7-18); CALCIUM 8.7 mg/dL (8.5-10.1); CARBON DIOXIDE 23.5 mmol/L (21-32); CHLORIDE 109 mmol/L (98-107); COR CA(FOR HYPOALB) 10.1 mg/dL (8.5-10.1); COR NA(FOR HYPERGLY) 141 mmol/L (136-145); CREATININE 0.79 mg/dL (0.55-1.02); SODIUM 141 mmol/L (136-145); eGFR NON BLACK RACES > 60 (>60)
[2018-02-06] MEDS: D5 1/2 NS 1000 ML 1,000 ML IV SCH (17:52)
[2018-02-06] MEDS: ANCEF VIAL 1 GRAM 1 G in NS 100 ML IV + SPIKE MINIBAG* 100 ML IV SCH ×2 (17:53→23:05)
[2018-02-06] MEDS: PROTONIX INJ 40 MG VIAL IVP SCH (18:23)
[2018-02-06] MEDS: ZOFRAN INJ 4 MG VIAL IVP PRN (21:20)
[2018-02-07] MEDS ORDERED: MORPHINE SULFATE PCA 30 MG ONE (01:48)
[2018-02-07] MEDS: D5 1/2 NS 1000 ML 1,000 ML IV SCH ×3 (02:00→17:12)
[2018-02-07] MEDS: MORPHINE SULFATE PCA 30 MG IVP PRN ×3 (02:00→23:49)
[2018-02-07] MEDS ORDERED: NARCAN INJ IVP PRN (02:23)
[2018-02-07] MEDS: PEPCID 20 MG IV PREMIX* 20 MG/50 ML BAG IV SCH ×3 (03:37→20:15)
[2018-02-07] MEDS: ANCEF VIAL 1 GRAM 1 G in NS 100 ML IV + SPIKE MINIBAG* 100 ML IV SCH ×2 (06:26→14:10)
[2018-02-07 06:30] LABS: ALANINE AMINOTRANSFERASE 19 Units/L (12-78); ALBUMIN 2.3 g/dL (3.4-5.0); ALKALINE PHOSPHATASE 35 Units/L (46-116); ASPARTATE AMINO TRANSFERASE 20 Units/L (15-37); BLOOD UREA NITROGEN 9 mg/dL (7-18); CALCIUM 8.7 mg/dL (8.5-10.1); CARBON DIOXIDE 25.2 mmol/L (21-32); CHLORIDE 107 mmol/L (98-107); COR CA(FOR HYPOALB) 10.1 mg/dL (8.5-10.1); COR NA(FOR HYPERGLY) 141 mmol/L (136-145); CREATININE 0.82 mg/dL (0.55-1.02); SODIUM 140 mmol/L (136-145); eGFR NON BLACK RACES > 60 (>60)
[2018-02-07 06:34] LABS: BASOPHILS % (AUTO) 0.2 % (0.2-1.0); EOSINOPHILS % (AUTO) 0.1 % (0.9-2.9); LYMPHOCYTES # (AUTO) 1.2 X10^3/uL (1.3-2.9); LYMPHOCYTES % (AUTO) 15.1 % (21.0-51.0); MEAN CORPUSCULAR HEMOGLOBIN 30.2 pg (27.0-34.0); MEAN CORPUSCULAR HGB CONC 34.4 g/dL (33.0-35.0); MEAN CORPUSCULAR VOLUME 87.9 fL (80.0-100.0); MONOCYTES # (AUTO) 0.6 x10^3/uL (0.3-0.8); MONOCYTES % (AUTO) 6.9 % (0.0-13.0); NEUTROPHILS # (AUTO) 6.4 x10^3/uL (2.2-4.8); NEUTROPHILS % (AUTO) 77.7 % (42.0-75.0); PLATELET COUNT 159 X10^3/uL (150.0-450.0); WHITE BLOOD COUNT 8.3 X10^3/uL (3.6-10.0)
[2018-02-07] MEDS ORDERED: REGLAN INJ 10 MG VIAL IVP PRN (07:22)
[2018-02-07] MEDS: REGLAN INJ 10 MG VIAL IVP SCH ×3 (07:55→21:36)
[2018-02-07] MEDS ORDERED: REGLAN INJ 10 MG VIAL IVP SCH (08:00)
--- NOTE | 2018-02-07 08:11 | DR.PROGNOT ---
Hospital Progress Notes - Progress Note for Day of: Progress Note Date: 02/07/18 - Chief Complaint Chief Complaint: PO day 1. exploratory laparotomy , lysis of adhesions , closure of Vanessa's procedure for ruptured diverticulitis . doing fairly well . urine op is low , CBC and CMP normal ... Temp 100 - Past Medical Family Social History Past Med/Fam/Surg Hx: No changes since H&P Allergies: Allergies Iodine and Iodide Containing Produc Allergy (Verified 11/08/17 10:49) meperidine [From Demerol] Allergy (Verified 11/08/17 10:49) - Review Of Systems ROS: No change since H&P - Vital Signs Vital Signs: Temperature 100.0 F Pulse Rate [Right Brachial] 78 Pulse Rate 74 Respiratory Rate 18 Blood Pressure [Left Arm] 141/70 Blood Pressure [Right Arm] 87/44 Blood Pressure 96/45 O2 Sat by Pulse Oximetry 100 - Physical Exam Respiratory: Normal (clear lung , no wheezing or rales .) Cardiovascular: Normal GI:Auscultation: Decreased GI: Tenderness: Diffuse, Epigastric, Periumbilical Mood Description: Calm Speech Pattern: Clear, Appropriate - Laboratory and Diagnostics Result Diagrams: 02/07/18 05:34 02/07/18 05:34 Labs: 02/06/18 15:56 Abdomen Gram Stain - Final Laboratory WBC 8.3 X10^3/uL (3.6-10.0) 02/07/18 05:34 RBC 3.30 X10^6/uL (3.5-5.4) L 02/07/18 05:34 Hgb 10.0 g/dL (12.0-16.0) L 02/07/18 05:34 Hct 29.0 % (36.0-47.0) L 02/07/18 05:34 MCV 87.9 fL (80.0-100.0) 02/07/18 05:34 MCH 30.2 pg (27.0-34.0) 02/07/18 05:34 MCHC 34.4 g/dL (33.0-35.0) 02/07/18 05:34 RDW 18.0 % (11.6-16.5) H 02/07/18 05:34 Plt Count 159 X10^3/uL (150.0-450.0) 02/07/18 05:34 MPV 9.0 fL (7.4-11.0) 02/07/18 05:34 Neut % (Auto) 77.7 % (42.0-75.0) H 02/07/18 05:34 Lymph % (Auto) 15.1 % (21.0-51.0) L 02/07/18 05:34 [place] % (Auto) 6.9 % (0.0-13.0) 02/07/18 05:34 Eos % (Auto) 0.1 % (0.9-2.9) L 02/07/18 05:34 Baso % (Auto) 0.2 % (0.2-1.0) 02/07/18 05:34 Neut # (Auto) 6.4 x10^3/uL (2.2-4.8) H 02/07/18 05:34 Lymph # (Auto) 1.2 X10^3/uL (1.3-2.9) L 02/07/18 05:34 [place] # (Auto) 0.6 x10^3/uL (0.3-0.8) 02/07/18 05:34 Eos # (Auto) 0.0 x10^3/uL (0.0-0.2) 02/07/18 05:34 Baso # (Auto) 0.0 X10^3/uL (0.0-0.1) 02/07/18 05:34 Absolute Nucleated RBC 0.0 /100WBC 02/07/18 05:34 INR Target Range - 02/06/18 10:35 INR 0.98 (0.8-1.3) 02/06/18 10:35 Sodium 140 mmol/L (136-145) 02/07/18 05:34 Corrected Sodium 141 mmol/L (136-145) 02/07/18 05:34 Potassium 3.9 mmol/L (3.5-5.1) 02/07/18 05:34 Chloride 107 mmol/L (98-107) 02/07/18 05:34 Carbon Dioxide 25.2 mmol/L (21-32) 02/07/18 05:34 BUN 9 mg/dL (7-18) 02/07/18 05:34 Creatinine 0.82 mg/dL (0.55-1.02) 02/07/18 05:34 Est GFR (MDRD) Af Amer > 60 (>60) 02/07/18 05:34 Est GFR (MDRD) Non-Af > 60 (>60) 02/07/18 05:34 Glucose 151 mg/dL (65-99) H 02/07/18 05:34 Calcium 8.7 mg/dL (8.5-10.1) 02/07/18 05:34 Corrected Calcium 10.1 mg/dL (8.5-10.1) 02/07/18 05:34 Total Bilirubin 0.50 mg/dL (0.2-1.0) 02/07/18 05:34 AST 20 Units/L (15-37) 02/07/18 05:34 ALT 19 Units/L (12-78) 02/07/18 05:34 Alkaline Phosphatase 35 Units/L (46-116) L 02/07/18 05:34 Total Protein 5.0 g/dL (6.4-8.2) L 02/07/18 05:34 Albumin 2.3 g/dL (3.4-5.0) L 02/07/18 05:34 Globulin 2.7 g/dL (2.5-4.5) 02/07/18 05:34 Albumin/Globulin Ratio 0.9 Ratio (1.1-2.1) L 02/07/18 05:34 Tissue Pathology To follow 02/06/18 15:04 Blood Type O POSITIVE 02/06/18 10:35 Antibody Screen Negative 02/06/18 10:35 Crossmatch See Detail 02/06/18 10:35 - Assessment and Plan 1: post operative laparotomy , closure Vanessa's. abdominal adhesions. back pain . will increase IVF. D/C epidural . start Lovenox . D/C ATB. OOB with binder , incentive spirometer and same PO care.
[2018-02-07] MEDS ORDERED: TORADOL 30 MG VIAL ONE (08:55)
[2018-02-07] MEDS: TORADOL 30 MG VIAL IVP SCH ×3 (08:58→20:15)
[2018-02-07] MEDS ORDERED: LEVAQUIN PREMIX IV 750 MG 750 MG/150 ML BAG IV NR (09:00)
[2018-02-07] MEDS: PROTONIX INJ 40 MG VIAL IVP SCH (09:25)
[2018-02-07] MEDS: ZOFRAN INJ 4 MG VIAL IVP PRN (11:44)
[2018-02-07] MEDS: LOVENOX INJ 30 MG SYR SC SCH ×2 (12:28→20:15)
[2018-02-07] MEDS ORDERED: DILAUDID INJ IVP PRN (16:07)
[2018-02-07] MEDS ORDERED: ZOFRAN INJ 4 MG VIAL ONE (16:09)
[2018-02-07] MEDS ORDERED: DILAUDID INJ ONE (16:09)
[2018-02-07] MEDS ORDERED: ZOFRAN INJ 4 MG VIAL IVP PRN (17:00)
[2018-02-08] MEDS: D5 1/2 NS 1000 ML 1,000 ML IV SCH ×4 (03:03→19:28)
[2018-02-08] MEDS: TORADOL 30 MG VIAL IVP SCH (03:03)
[2018-02-08 06:02] LABS: BLOOD UREA NITROGEN 8 mg/dL (7-18); CALCIUM 9.2 mg/dL (8.5-10.1); CARBON DIOXIDE 27.9 mmol/L (21-32); CHLORIDE 108 mmol/L (98-107); SODIUM 140 mmol/L (136-145); eGFR NON BLACK RACES > 60 (>60)
[2018-02-08 06:10] LABS: BASOPHILS % (AUTO) 0.6 % (0.2-1.0); EOSINOPHILS # (AUTO) 0.4 x10^3/uL (0.0-0.2); EOSINOPHILS % (AUTO) 5.4 % (0.9-2.9); HEMATOCRIT 26.9 % (36.0-47.0); HEMOGLOBIN 9.3 g/dL (12.0-16.0); LYMPHOCYTES # (AUTO) 1.4 X10^3/uL (1.3-2.9); LYMPHOCYTES % (AUTO) 17.7 % (21.0-51.0); MEAN CORPUSCULAR HEMOGLOBIN 30.7 pg (27.0-34.0); MEAN CORPUSCULAR HGB CONC 34.5 g/dL (33.0-35.0); MEAN CORPUSCULAR VOLUME 88.9 fL (80.0-100.0); MEAN PLATELET VOLUME 8.7 fL (7.4-11.0); MONOCYTES # (AUTO) 0.7 x10^3/uL (0.3-0.8); MONOCYTES % (AUTO) 8.3 % (0.0-13.0); NEUTROPHILS # (AUTO) 5.4 x10^3/uL (2.2-4.8); PLATELET COUNT 144 X10^3/uL (150.0-450.0); RED BLOOD COUNT 3.02 X10^6/uL (3.5-5.4); RED CELL DISTRIBUTION WIDTH 17.2 % (11.6-16.5)
[2018-02-08] MEDS: REGLAN INJ 10 MG VIAL IVP SCH ×3 (06:32→22:25)
[2018-02-08] MEDS ORDERED: K-LYTE EFFERVESCENT PO PRN (06:34)
[2018-02-08] MEDS ORDERED: POTASSIUM CHL 60 MEQ/NS 0.45% 500 ML IV PRN (06:34)
[2018-02-08] MEDS ORDERED: POTASSIUM CHL 40 MEQ/NS 0.45% 500 ML IV PRN (06:34)
[2018-02-08] MEDS ORDERED: POTASSIUM CHLORIDE LIQ 20 MEQ UDC PO PRN (06:34)
[2018-02-08] MEDS ORDERED: K-RIDER 10 MEQ/NS 100 ML 10 MEQ/100 ML BAG IV PRN (06:34)
[2018-02-08] MEDS: PROTONIX INJ 40 MG VIAL IVP SCH (08:32)
[2018-02-08] MEDS: LOVENOX INJ 30 MG SYR SC SCH ×2 (08:32→20:44)
[2018-02-08] MEDS: PEPCID 20 MG IV PREMIX* 20 MG/50 ML BAG IV SCH ×2 (08:32→20:44)
--- NOTE | 2018-02-08 09:18 | DR.PROGNOT ---
Hospital Progress Notes - Progress Note for Day of: Progress Note Date: 02/08/18 - Chief Complaint Chief Complaint: PO day 2. exploratory laparotomy , lysis of adhesions , closure of Vanessa's procedure for ruptured diverticulitis . doing fairly well . urine op is much better . , CBC and CMP normal ... Temp 100 - Past Medical Family Social History Past Med/Fam/Surg Hx: No changes since H&P Allergies: Allergies Iodine and Iodide Containing Produc Allergy (Verified 11/08/17 10:49) meperidine [From Demerol] Allergy (Verified 11/08/17 10:49) - Review Of Systems ROS: No change since H&P - Vital Signs Vital Signs: Temperature 98.5 F Pulse Rate [Right Brachial] 86 Pulse Rate 74 Respiratory Rate 20 Blood Pressure [Left Arm] 166/73 Blood Pressure [Right Arm] 125/60 Blood Pressure 96/45 O2 Sat by Pulse Oximetry 94 - Physical Exam Respiratory: Normal (clear lung , no wheezing or rales .) Cardiovascular: Normal GI:Auscultation: Normal GI: Tenderness: Diffuse, Epigastric, Periumbilical Mood Description: Calm Speech Pattern: Clear, Appropriate - Laboratory and Diagnostics Result Diagrams: 02/08/18 05:10 02/08/18 05:10 Labs: 02/06/18 15:56 Abdomen Gram Stain - Final 02/06/18 15:56 Abdomen Wound Culture - Preliminary Laboratory WBC 8.0 X10^3/uL (3.6-10.0) 02/08/18 05:10 RBC 3.02 X10^6/uL (3.5-5.4) L 02/08/18 05:10 Hgb 9.3 g/dL (12.0-16.0) L 02/08/18 05:10 Hct 26.9 % (36.0-47.0) L 02/08/18 05:10 MCV 88.9 fL (80.0-100.0) 02/08/18 05:10 MCH 30.7 pg (27.0-34.0) 02/08/18 05:10 MCHC 34.5 g/dL (33.0-35.0) 02/08/18 05:10 RDW 17.2 % (11.6-16.5) H 02/08/18 05:10 Plt Count 144 X10^3/uL (150.0-450.0) L 02/08/18 05:10 MPV 8.7 fL (7.4-11.0) 02/08/18 05:10 Neut % (Auto) 68.0 % (42.0-75.0) 02/08/18 05:10 Lymph % (Auto) 17.7 % (21.0-51.0) L 02/08/18 05:10 [place] % (Auto) 8.3 % (0.0-13.0) 02/08/18 05:10 Eos % (Auto) 5.4 % (0.9-2.9) H 02/08/18 05:10 Baso % (Auto) 0.6 % (0.2-1.0) 02/08/18 05:10 Neut # (Auto) 5.4 x10^3/uL (2.2-4.8) H 02/08/18 05:10 Lymph # (Auto) 1.4 X10^3/uL (1.3-2.9) 02/08/18 05:10 [place] # (Auto) 0.7 x10^3/uL (0.3-0.8) 02/08/18 05:10 Eos # (Auto) 0.4 x10^3/uL (0.0-0.2) H 02/08/18 05:10 Baso # (Auto) 0.0 X10^3/uL (0.0-0.1) 02/08/18 05:10 Absolute Nucleated RBC 0.0 /100WBC 02/08/18 05:10 INR Target Range - 02/06/18 10:35 INR 0.98 (0.8-1.3) 02/06/18 10:35 Sodium 140 mmol/L (136-145) 02/08/18 05:10 Corrected Sodium TNP 02/08/18 05:10 Potassium 3.6 mmol/L (3.5-5.1) 02/08/18 05:10 Chloride 108 mmol/L (98-107) H 02/08/18 05:10 Carbon Dioxide 27.9 mmol/L (21-32) 02/08/18 05:10 BUN 8 mg/dL (7-18) 02/08/18 05:10 Creatinine 0.70 mg/dL (0.55-1.02) 02/08/18 05:10 Est GFR (MDRD) Af Amer > 60 (>60) 02/08/18 05:10 Est GFR (MDRD) Non-Af > 60 (>60) 02/08/18 05:10 Glucose 108 mg/dL (65-99) H 02/08/18 05:10 Calcium 9.2 mg/dL (8.5-10.1) 02/08/18 05:10 Corrected Calcium 10.1 mg/dL (8.5-10.1) 02/07/18 05:34 Magnesium 1.2 mg/dL (1.7-2.9) L 02/08/18 05:10 Total Bilirubin 0.50 mg/dL (0.2-1.0) 02/07/18 05:34 AST 20 Units/L (15-37) 02/07/18 05:34 ALT 19 Units/L (12-78) 02/07/18 05:34 Alkaline Phosphatase 35 Units/L (46-116) L 02/07/18 05:34 Total Protein 5.0 g/dL (6.4-8.2) L 02/07/18 05:34 Albumin 2.3 g/dL (3.4-5.0) L 02/07/18 05:34 Globulin 2.7 g/dL (2.5-4.5) 02/07/18 05:34 Albumin/Globulin Ratio 0.9 Ratio (1.1-2.1) L 02/07/18 05:34 Tissue Pathology To follow 02/06/18 15:04 Blood Type O POSITIVE 02/06/18 10:35 Antibody Screen Negative 02/06/18 10:35 Crossmatch See Detail 02/06/18 10:35 - Assessment and Plan 1: post operative laparotomy , closure Vanessa's. abdominal adhesions. start on clear liquid. D/C robin . same PO care . start Lovenox . D/C ATB. OOB with binder , incentive spirometer and same PO care.
[2018-02-08] MEDS ORDERED: D5 1/2 NS 1000 ML 1,000 ML IV SCH (09:31)
[2018-02-08] MEDS ORDERED: AYR NASAL DROPS ENOSTRIL PRN (10:15)
--- NOTE | 2018-02-08 11:18 | RAD ---
HISTORY: Status post colostomy reversal with new onset fever Study: Single-view chest Comparison: October 2017 Findings: The trachea is midline. The cardiac silhouette is unremarkable. There is chronic right basilar cons olidation representing atelectasis and/or pneumonia. A trace left pleural effusion is suspected. Th ere is no pneumothorax. IMPRESSION: Chronic right basilar consolidation and possible trace left effusion. Reported By:
[2018-02-08] MEDS ORDERED: MVI INJ (ADULT) IV ONE (14:19)
[2018-02-08] MEDS: MORPHINE SULFATE PCA 30 MG IVP PRN (14:33)
[2018-02-08] MEDS: MAGNESIUM SULFATE 1 GRAM/100 mL PREMIX 1 GM/100 ML BAG IV PRN ×4 (16:28→20:45)
[2018-02-09] MEDS: D5 1/2 NS 1000 ML 1,000 ML IV SCH (01:25)
[2018-02-09] MEDS: MORPHINE SULFATE PCA 30 MG IVP PRN (05:30)
[2018-02-09] MEDS: REGLAN INJ 10 MG VIAL IVP SCH (05:46)
[2018-02-09 05:49] LABS: BLOOD UREA NITROGEN 4 mg/dL (7-18); CALCIUM 8.8 mg/dL (8.5-10.1); CARBON DIOXIDE 26.9 mmol/L (21-32); CHLORIDE 105 mmol/L (98-107); COR NA(FOR HYPERGLY) 139 mmol/L (136-145); CREATININE 0.59 mg/dL (0.55-1.02); SODIUM 138 mmol/L (136-145); eGFR NON BLACK RACES > 60 (>60)
[2018-02-09 05:56] LABS: MAGNESIUM 1.6 mg/dL (1.7-2.9)
[2018-02-09 06:10] LABS: BASOPHILS % (AUTO) 0.6 % (0.2-1.0); EOSINOPHILS # (AUTO) 0.3 x10^3/uL (0.0-0.2); EOSINOPHILS % (AUTO) 4.7 % (0.9-2.9); HEMATOCRIT 23.4 % (36.0-47.0); LYMPHOCYTES # (AUTO) 1.3 X10^3/uL (1.3-2.9); LYMPHOCYTES % (AUTO) 19.2 % (21.0-51.0); MEAN CORPUSCULAR HEMOGLOBIN 30.5 pg (27.0-34.0); MEAN CORPUSCULAR HGB CONC 34.4 g/dL (33.0-35.0); MEAN CORPUSCULAR VOLUME 88.7 fL (80.0-100.0); MEAN PLATELET VOLUME 8.8 fL (7.4-11.0); MONOCYTES # (AUTO) 0.5 x10^3/uL (0.3-0.8); MONOCYTES % (AUTO) 7.6 % (0.0-13.0); NEUTROPHILS # (AUTO) 4.7 x10^3/uL (2.2-4.8); NEUTROPHILS % (AUTO) 67.9 % (42.0-75.0); PLATELET COUNT 144 X10^3/uL (150.0-450.0); RED BLOOD COUNT 2.64 X10^6/uL (3.5-5.4); RED CELL DISTRIBUTION WIDTH 17.1 % (11.6-16.5); WHITE BLOOD COUNT 6.9 X10^3/uL (3.6-10.0)
[2018-02-09] MEDS ORDERED: REGLAN INJ 10 MG VIAL IVP PRN (09:00)
[2018-02-09] MEDS ORDERED: D5 1/2 NS + KCL 20 MEQ/L 1,000 ML IV SCH (09:00)
[2018-02-09] MEDS: MVI INJ (ADULT) IV SCH (09:18)
[2018-02-09] MEDS: LOVENOX INJ 30 MG SYR SC SCH ×2 (09:19→20:49)
[2018-02-09] MEDS: MAGNESIUM SULFATE 1 GRAM/100 mL PREMIX 1 GM/100 ML BAG IV PRN ×2 (09:19→10:28)
[2018-02-09] MEDS: PROTONIX INJ 40 MG VIAL IVP SCH (09:19)
[2018-02-09] MEDS: PEPCID 20 MG IV PREMIX* 20 MG/50 ML BAG IV SCH ×2 (09:19→20:50)
[2018-02-09] MEDS: NORCO 5/325 MG TAB PO PRN ×2 (09:20→18:11)
[2018-02-09] MEDS ORDERED: DUONEB 0.5 MG/3 MG NEB SCH (09:45)
[2018-02-09] MEDS ORDERED: LEVAQUIN PREMIX IV 500 MG 500 MG/100 ML BAG IV SCH (10:00)
--- NOTE | 2018-02-09 10:14 | DR.PROGNOT ---
Hospital Progress Notes - Progress Note for Day of: Progress Note Date: 02/09/18 - Chief Complaint Chief Complaint: PO day 3. exploratory laparotomy , lysis of adhesions , closure of Vanessa's procedure for ruptured diverticulitis . doing fairly well . mild abdominal pain no nausea ,no vomiting . Mg is low . mild PO anemia and hypokalemia ...no BM yet - Past Medical Family Social History Past Med/Fam/Surg Hx: No changes since H&P Allergies: Allergies Iodine and Iodide Containing Produc Allergy (Verified 11/08/17 10:49) meperidine [From Demerol] Allergy (Verified 11/08/17 10:49) - Review Of Systems ROS: No change since H&P - Vital Signs Vital Signs: Temperature 99.6 F Pulse Rate [Right Brachial] 94 Pulse Rate 74 Respiratory Rate 18 Blood Pressure [Left Arm] 166/73 Blood Pressure [Right Arm] 115/53 Blood Pressure 96/45 O2 Sat by Pulse Oximetry 98 - Physical Exam Respiratory: Normal (clear lung , no wheezing or rales .) Cardiovascular: Normal GI:Auscultation: Normal GI: Tenderness: Diffuse, Epigastric, Periumbilical Mood Description: Calm Speech Pattern: Clear, Appropriate - Laboratory and Diagnostics Result Diagrams: 02/09/18 05:00 02/09/18 05:00 Labs: 02/06/18 15:56 Abdomen Gram Stain - Final 02/06/18 15:56 Abdomen Wound Culture - Preliminary Laboratory WBC 6.9 X10^3/uL (3.6-10.0) 02/09/18 05:00 RBC 2.64 X10^6/uL (3.5-5.4) L 02/09/18 05:00 Hgb 8.0 g/dL (12.0-16.0) L 02/09/18 05:00 Hct 23.4 % (36.0-47.0) L 02/09/18 05:00 MCV 88.7 fL (80.0-100.0) 02/09/18 05:00 MCH 30.5 pg (27.0-34.0) 02/09/18 05:00 MCHC 34.4 g/dL (33.0-35.0) 02/09/18 05:00 RDW 17.1 % (11.6-16.5) H 02/09/18 05:00 Plt Count 144 X10^3/uL (150.0-450.0) L 02/09/18 05:00 MPV 8.8 fL (7.4-11.0) 02/09/18 05:00 Neut % (Auto) 67.9 % (42.0-75.0) 02/09/18 05:00 Lymph % (Auto) 19.2 % (21.0-51.0) L 02/09/18 05:00 [place] % (Auto) 7.6 % (0.0-13.0) 02/09/18 05:00 Eos % (Auto) 4.7 % (0.9-2.9) H 02/09/18 05:00 Baso % (Auto) 0.6 % (0.2-1.0) 02/09/18 05:00 Neut # (Auto) 4.7 x10^3/uL (2.2-4.8) 02/09/18 05:00 Lymph # (Auto) 1.3 X10^3/uL (1.3-2.9) 02/09/18 05:00 [place] # (Auto) 0.5 x10^3/uL (0.3-0.8) 02/09/18 05:00 Eos # (Auto) 0.3 x10^3/uL (0.0-0.2) H 02/09/18 05:00 Baso # (Auto) 0.0 X10^3/uL (0.0-0.1) 02/09/18 05:00 Absolute Nucleated RBC 0.0 /100WBC 02/09/18 05:00 INR Target Range - 02/06/18 10:35 INR 0.98 (0.8-1.3) 02/06/18 10:35 Sodium 138 mmol/L (136-145) 02/09/18 05:00 Corrected Sodium 139 mmol/L (136-145) 02/09/18 05:00 Potassium 3.4 mmol/L (3.5-5.1) L 02/09/18 05:00 Chloride 105 mmol/L (98-107) 02/09/18 05:00 Carbon Dioxide 26.9 mmol/L (21-32) 02/09/18 05:00 BUN 4 mg/dL (7-18) L 02/09/18 05:00 Creatinine 0.59 mg/dL (0.55-1.02) 02/09/18 05:00 Est GFR (MDRD) Af Amer > 60 (>60) 02/09/18 05:00 Est GFR (MDRD) Non-Af > 60 (>60) 02/09/18 05:00 Glucose 124 mg/dL (65-99) H 02/09/18 05:00 Calcium 8.8 mg/dL (8.5-10.1) 02/09/18 05:00 Corrected Calcium 10.1 mg/dL (8.5-10.1) 02/07/18 05:34 Magnesium 1.6 mg/dL (1.7-2.9) L 02/09/18 05:00 Total Bilirubin 0.50 mg/dL (0.2-1.0) 02/07/18 05:34 AST 20 Units/L (15-37) 02/07/18 05:34 ALT 19 Units/L (12-78) 02/07/18 05:34 Alkaline Phosphatase 35 Units/L (46-116) L 02/07/18 05:34 Total Protein 5.0 g/dL (6.4-8.2) L 02/07/18 05:34 Albumin 2.3 g/dL (3.4-5.0) L 02/07/18 05:34 Globulin 2.7 g/dL (2.5-4.5) 02/07/18 05:34 Albumin/Globulin Ratio 0.9 Ratio (1.1-2.1) L 02/07/18 05:34 Tissue Pathology To follow 02/06/18 15:04 Blood Type O POSITIVE 02/06/18 10:35 Antibody Screen Negative 02/06/18 10:35 Crossmatch See Detail 02/06/18 10:35 - Assessment and Plan 1: post operative laparotomy , closure Vanessa's. abdominal adhesions. start on full liquid. D/C robin . same PO care . D/C ATB. same DVT prophylaxis. OOB with binder , incentive spirometer and same PO care.
[2018-02-09] MEDS: VIBRAMYCIN 100 MG in D5W 250 ML IV 250 ML IV SCH ×2 (11:57→20:50)
[2018-02-09] MEDS: TORADOL 30 MG VIAL IVP PRN ×2 (12:44→20:49)
[2018-02-09] MEDS ORDERED: ROBITUSSIN (PLAIN) PO SCH (13:00)
[2018-02-09 14:14] LABS: ALANINE AMINOTRANSFERASE 18 Units/L (12-78); ALKALINE PHOSPHATASE 70 Units/L (46-116); ASPARTATE AMINO TRANSFERASE 25 Units/L (15-37); COR CA(FOR HYPOALB) 10.4 mg/dL (8.5-10.1); TOTAL PROTEIN 5.4 g/dL (6.4-8.2)
--- NOTE | 2018-02-09 18:03 | PCM.PROG ---
Progress Note - Progress Note for Day of Date: 02/07/18 - Subjective Subjective: WAS ADMITTED BY FOR AN EXPLORATORY LAPAROTOMY, LYSIS OF ADHESIONS, MOBELIZATION OF SPLENIC FLEXURE, AND CLOSURE OF HARTMANS PROCEDURE FOR RUPTURED DIVERTICULITIS. EXPLORATORY LAPAROTOMY REVEALED SEVERAL ABDOMINAL ADHESIONS AND MODERATE DIVERTICULOSIS. SHE IS POST OP DAY 1. SHE CONTINUES WITH ABDOMINAL PAIN THIS MORNING. ON EXAMINATION, HEART IS REGULAR IN RATE AND RHYTHM. BILATERAL LUNGS ARE NOTED WITH DIMINISHED LUNG SOUNDS THROUGHOUT. ABDOMEN IS NOTED WITH A DRESSING AND BINDER, DRY AND INTACT. PATTERSON CATHETER TO BEDSIDE WITH MINIMAL OUTPUT. HER VITALS TODAY ARE 99.3-77-20-100%- 127/62. SHE HAS RAN A LOW GRADE TEMP THROUGHOUT THE NIGHT AND MORNING. LABS WERE OBTAINED. ABNORMAL LAB VALUES INCLUDE THE FOLLOWING: RBC 3.30, HGB 10.0, HCT 29.0, GLUCOSE 151, ALK PHOS 35, TOTAL PROTEIN 5.0, ALBUMIN 2.3. CULTURE OF ABDOMINAL FLUID IS PENDING. SHE IS CURRENTLY ON A MORPHINE SIFTER AND MILLER. TODAY, WE WILL START A 2MG/HR BASAL RATE ON THE MORPHINE SIFTER AND MILLER AND START TORADOL 30MG IV Q6H ONEIDA FOR PAIN. OTHERWISE, WE WILL CONTINUE WITH CURRENT PLAN OF CARE. SHE IS NPO. WE PLAN TO FOLLOW UP WITH AM LABS AND CONTINUE TO MONITOR PATIENT. - Past Medical Family Social History Past Med/Fam/Surg Hx: No changes since H&P Allergies: Allergies Iodine and Iodide Containing Produc Allergy (Verified 11/08/17 10:49) meperidine [From Demerol] Allergy (Verified 11/08/17 10:49) - Review of Systems ROS: No change since H&P - Vital Signs and I&O's Vital Signs: Temperature 98.8 F Pulse Rate [Right Brachial] 88 Pulse Rate 74 Respiratory Rate 16 Blood Pressure [Left Arm] 132/61 Blood Pressure [Right Arm] 130/60 Blood Pressure 96/45 O2 Sat by Pulse Oximetry 98 Intake and Output: Intake & Output 02/07/18 02/08/18 02/09/18 02/10/18 11:59 11:59 11:59 11:59 Intake Total 6840 / 6840 5219 / 5219 1895 / 1895 2208 / 2208 Output Total 3315 / 3315 1790 / 1790 135 / 135 55 / 55 Balance 3525 / 3525 3429 / 3429 1760 / 1760 2153 / 2153 - Physical Exam Oriented: Normal Eyes: Normal Ear: Normal Nose: Normal Throat: Normal Respiratory: Diminished Cardiovascular: Normal. negative: S3, S4, Murmur : Normal Auscultation: Bowel Sounds: Normal, Decreased Palpation: Normal Tenderness: Diffuse, Epigastric, Periumbilical Skin: Wound (ABDOMEN) Musculoskeletal: Normal Psychiatric: Normal Mood Description: Calm Affect: Normal Speech Pattern: Clear, Appropriate - Laboratory and Diagnostics Result Diagrams: 02/09/18 05:00 02/09/18 05:00 Labs: 02/06/18 15:56 Abdomen Gram Stain - Final 02/06/18 15:56 Abdomen Wound Culture - Preliminary Laboratory WBC 6.9 X10^3/uL (3.6-10.0) 02/09/18 05:00 RBC 2.64 X10^6/uL (3.5-5.4) L 02/09/18 05:00 Hgb 8.0 g/dL (12.0-16.0) L 02/09/18 05:00 Hct 23.4 % (36.0-47.0) L 02/09/18 05:00 MCV 88.7 fL (80.0-100.0) 02/09/18 05:00 MCH 30.5 pg (27.0-34.0) 02/09/18 05:00 MCHC 34.4 g/dL (33.0-35.0) 02/09/18 05:00 RDW 17.1 % (11.6-16.5) H 02/09/18 05:00 Plt Count 144 X10^3/uL (150.0-450.0) L 02/09/18 05:00 MPV 8.8 fL (7.4-11.0) 02/09/18 05:00 Neut % (Auto) 67.9 % (42.0-75.0) 02/09/18 05:00 Lymph % (Auto) 19.2 % (21.0-51.0) L 02/09/18 05:00 [place] % (Auto) 7.6 % (0.0-13.0) 02/09/18 05:00 Eos % (Auto) 4.7 % (0.9-2.9) H 02/09/18 05:00 Baso % (Auto) 0.6 % (0.2-1.0) 02/09/18 05:00 Neut # (Auto) 4.7 x10^3/uL (2.2-4.8) 02/09/18 05:00 Lymph # (Auto) 1.3 X10^3/uL (1.3-2.9) 02/09/18 05:00 [place] # (Auto) 0.5 x10^3/uL (0.3-0.8) 02/09/18 05:00 Eos # (Auto) 0.3 x10^3/uL (0.0-0.2) H 02/09/18 05:00 Baso # (Auto) 0.0 X10^3/uL (0.0-0.1) 02/09/18 05:00 Absolute Nucleated RBC 0.0 /100WBC 02/09/18 05:00 INR Target Range - 02/06/18 10:35 INR 0.98 (0.8-1.3) 02/06/18 10:35 Sodium 138 mmol/L (136-145) 02/09/18 05:00 Corrected Sodium 139 mmol/L (136-145) 02/09/18 05:00 Potassium 3.4 mmol/L (3.5-5.1) L 02/09/18 05:00 Chloride 105 mmol/L (98-107) 02/09/18 05:00 Carbon Dioxide 26.9 mmol/L (21-32) 02/09/18 05:00 BUN 4 mg/dL (7-18) L 02/09/18 05:00 Creatinine 0.59 mg/dL (0.55-1.02) 02/09/18 05:00 Est GFR (MDRD) Af Amer > 60 (>60) 02/09/18 05:00 Est GFR (MDRD) Non-Af > 60 (>60) 02/09/18 05:00 Glucose 124 mg/dL (65-99) H 02/09/18 05:00 Calcium 8.8 mg/dL (8.5-10.1) 02/09/18 05:00 Corrected Calcium 10.4 mg/dL (8.5-10.1) H 02/09/18 05:00 Magnesium 1.6 mg/dL (1.7-2.9) L 02/09/18 05:00 Total Bilirubin 0.50 mg/dL (0.2-1.0) 02/09/18 05:00 AST 25 Units/L (15-37) 02/09/18 05:00 ALT 18 Units/L (12-78) 02/09/18 05:00 Alkaline Phosphatase 70 Units/L (46-116) 02/09/18 05:00 Total Protein 5.4 g/dL (6.4-8.2) L 02/09/18 05:00 Albumin 2.0 g/dL (3.4-5.0) L 02/09/18 05:00 Globulin 3.4 g/dL (2.5-4.5) 02/09/18 05:00 Albumin/Globulin Ratio 0.6 Ratio (1.1-2.1) L 02/09/18 05:00 Tissue Pathology To follow 02/06/18 15:04 Blood Type O POSITIVE 02/06/18 10:35 Antibody Screen Negative 02/06/18 10:35 Crossmatch See Detail 02/06/18 10:35
--- NOTE | 2018-02-09 18:08 | PCM.PROG ---
Progress Note - Progress Note for Day of Date: 02/08/18 - Subjective Subjective: WAS ADMITTED BY FOR AN EXPLORATORY LAPAROTOMY, LYSIS OF ADHESIONS, MOBELIZATION OF SPLENIC FLEXURE, AND CLOSURE OF HARTMANS PROCEDURE FOR RUPTURED DIVERTICULITIS. EXPLORATORY LAPAROTOMY REVEALED SEVERAL ABDOMINAL ADHESIONS AND MODERATE DIVERTICULOSIS. SHE IS POST OP DAY 2. SHE CONTINUES WITH ABDOMINAL PAIN THIS MORNING, SLIGHLY IMPROVED SINCE YESTERDAY. ON EXAMINATION, HEART IS REGULAR IN RATE AND RHYTHM. BILATERAL LUNGS ARE NOTED WITH DIMINISHED LUNG SOUNDS THROUGHOUT. ABDOMEN IS NOTED WITH A DRESSING AND BINDER, DRY AND INTACT. MILD, DIFFUSE ABDOMINAL PAIN NOTED. HER VITALS TODAY ARE 100.0-70-18-100%-127/58. SHE CONTINUES A LOW GRADE FEVER. LABS WERE OBTAINED. ABNORMAL LAB VALUES INCLUDE THE FOLLOWING: RBC 3.02, RBC 9.3, HCT 26.9 , PLT COUNT 144, CHLORIDE 108, GLUCOSE 108, MAGNESIUM 1.2. CULTURE OF ABDOMINAL FLUID IS PENDING. SHE CONTINUES ON A MORPHINE POST CLOSER AND TORADOL 30MG IV Q6H ONEIDA FOR PAIN. WE WILL CONTINUE WITH CURRENT PLAN OF CARE TODAY AND OBTAIN A CHEST XRAY TO RULE OUT A DEVELOPING PNEUMONIA. IS ADVANCING HER TO A CLEAR LIQUID DIET. WE PLAN TO FOLLOW UP WITH AM LABS AND CONTINUE TO MONITOR PATIENT. - Past Medical Family Social History Past Med/Fam/Surg Hx: No changes since H&P Allergies: Allergies Iodine and Iodide Containing Produc Allergy (Verified 11/08/17 10:49) meperidine [From Demerol] Allergy (Verified 11/08/17 10:49) - Review of Systems ROS: No change since H&P - Vital Signs and I&O's Vital Signs: Temperature 98.8 F Pulse Rate [Right Brachial] 88 Pulse Rate 74 Respiratory Rate 16 Blood Pressure [Left Arm] 132/61 Blood Pressure [Right Arm] 130/60 Blood Pressure 96/45 O2 Sat by Pulse Oximetry 98 Intake and Output: Intake & Output 02/07/18 02/08/18 02/09/18 02/10/18 11:59 11:59 11:59 11:59 Intake Total 6840 / 6840 5219 / 5219 1895 / 1895 2208 / 2208 Output Total 3315 / 3315 1790 / 1790 135 / 135 55 / 55 Balance 3525 / 3525 3429 / 3429 1760 / 1760 2153 / 2153 - Physical Exam Oriented: Normal Eyes: Normal Ear: Normal Nose: Normal Throat: Normal Respiratory: Diminished Cardiovascular: Normal. negative: S3, S4, Murmur : Normal Auscultation: Bowel Sounds: Normal, Decreased Palpation: Normal Tenderness: Diffuse, Epigastric, Periumbilical Skin: Wound (ABDOMEN) Musculoskeletal: Normal Psychiatric: Normal Mood Description: Calm Affect: Normal Speech Pattern: Clear, Appropriate - Laboratory and Diagnostics Result Diagrams: 02/09/18 05:00 02/09/18 05:00 Labs: 02/06/18 15:56 Abdomen Gram Stain - Final 02/06/18 15:56 Abdomen Wound Culture - Preliminary Laboratory WBC 6.9 X10^3/uL (3.6-10.0) 02/09/18 05:00 RBC 2.64 X10^6/uL (3.5-5.4) L 02/09/18 05:00 Hgb 8.0 g/dL (12.0-16.0) L 02/09/18 05:00 Hct 23.4 % (36.0-47.0) L 02/09/18 05:00 MCV 88.7 fL (80.0-100.0) 02/09/18 05:00 MCH 30.5 pg (27.0-34.0) 02/09/18 05:00 MCHC 34.4 g/dL (33.0-35.0) 02/09/18 05:00 RDW 17.1 % (11.6-16.5) H 02/09/18 05:00 Plt Count 144 X10^3/uL (150.0-450.0) L 02/09/18 05:00 MPV 8.8 fL (7.4-11.0) 02/09/18 05:00 Neut % (Auto) 67.9 % (42.0-75.0) 02/09/18 05:00 Lymph % (Auto) 19.2 % (21.0-51.0) L 02/09/18 05:00 [place] % (Auto) 7.6 % (0.0-13.0) 02/09/18 05:00 Eos % (Auto) 4.7 % (0.9-2.9) H 02/09/18 05:00 Baso % (Auto) 0.6 % (0.2-1.0) 02/09/18 05:00 Neut # (Auto) 4.7 x10^3/uL (2.2-4.8) 02/09/18 05:00 Lymph # (Auto) 1.3 X10^3/uL (1.3-2.9) 02/09/18 05:00 [place] # (Auto) 0.5 x10^3/uL (0.3-0.8) 02/09/18 05:00 Eos # (Auto) 0.3 x10^3/uL (0.0-0.2) H 02/09/18 05:00 Baso # (Auto) 0.0 X10^3/uL (0.0-0.1) 02/09/18 05:00 Absolute Nucleated RBC 0.0 /100WBC 02/09/18 05:00 INR Target Range - 02/06/18 10:35 INR 0.98 (0.8-1.3) 02/06/18 10:35 Sodium 138 mmol/L (136-145) 02/09/18 05:00 Corrected Sodium 139 mmol/L (136-145) 02/09/18 05:00 Potassium 3.4 mmol/L (3.5-5.1) L 02/09/18 05:00 Chloride 105 mmol/L (98-107) 02/09/18 05:00 Carbon Dioxide 26.9 mmol/L (21-32) 02/09/18 05:00 BUN 4 mg/dL (7-18) L 02/09/18 05:00 Creatinine 0.59 mg/dL (0.55-1.02) 02/09/18 05:00 Est GFR (MDRD) Af Amer > 60 (>60) 02/09/18 05:00 Est GFR (MDRD) Non-Af > 60 (>60) 02/09/18 05:00 Glucose 124 mg/dL (65-99) H 02/09/18 05:00 Calcium 8.8 mg/dL (8.5-10.1) 02/09/18 05:00 Corrected Calcium 10.4 mg/dL (8.5-10.1) H 02/09/18 05:00 Magnesium 1.6 mg/dL (1.7-2.9) L 02/09/18 05:00 Total Bilirubin 0.50 mg/dL (0.2-1.0) 02/09/18 05:00 AST 25 Units/L (15-37) 02/09/18 05:00 ALT 18 Units/L (12-78) 02/09/18 05:00 Alkaline Phosphatase 70 Units/L (46-116) 02/09/18 05:00 Total Protein 5.4 g/dL (6.4-8.2) L 02/09/18 05:00 Albumin 2.0 g/dL (3.4-5.0) L 02/09/18 05:00 Globulin 3.4 g/dL (2.5-4.5) 02/09/18 05:00 Albumin/Globulin Ratio 0.6 Ratio (1.1-2.1) L 02/09/18 05:00 Tissue Pathology To follow 02/06/18 15:04 Blood Type O POSITIVE 02/06/18 10:35 Antibody Screen Negative 02/06/18 10:35 Crossmatch See Detail 02/06/18 10:35
[2018-02-10 05:39] LABS: BASOPHILS % (AUTO) 0.4 % (0.2-1.0); EOSINOPHILS # (AUTO) 0.3 x10^3/uL (0.0-0.2); EOSINOPHILS % (AUTO) 8.3 % (0.9-2.9); HEMATOCRIT 22.7 % (36.0-47.0); HEMOGLOBIN 7.7 g/dL (12.0-16.0); LYMPHOCYTES # (AUTO) 0.6 X10^3/uL (1.3-2.9); LYMPHOCYTES % (AUTO) 20.6 % (21.0-51.0); MEAN CORPUSCULAR HEMOGLOBIN 30.3 pg (27.0-34.0); MEAN CORPUSCULAR HGB CONC 34.1 g/dL (33.0-35.0); MEAN CORPUSCULAR VOLUME 88.8 fL (80.0-100.0); MEAN PLATELET VOLUME 8.3 fL (7.4-11.0); MONOCYTES # (AUTO) 0.4 x10^3/uL (0.3-0.8); MONOCYTES % (AUTO) 11.4 % (0.0-13.0); NEUTROPHILS # (AUTO) 1.8 x10^3/uL (2.2-4.8); NEUTROPHILS % (AUTO) 59.3 % (42.0-75.0); PLATELET COUNT 147 X10^3/uL (150.0-450.0); RED BLOOD COUNT 2.56 X10^6/uL (3.5-5.4); RED CELL DISTRIBUTION WIDTH 16.5 % (11.6-16.5); WHITE BLOOD COUNT 3.1 X10^3/uL (3.6-10.0)
[2018-02-10 05:54] LABS: ALANINE AMINOTRANSFERASE 16 Units/L (12-78); ALBUMIN 2.1 g/dL (3.4-5.0); ALKALINE PHOSPHATASE 42 Units/L (46-116); ASPARTATE AMINO TRANSFERASE 17 Units/L (15-37); BLOOD UREA NITROGEN 2 mg/dL (7-18); CALCIUM 8.9 mg/dL (8.5-10.1); CARBON DIOXIDE 31.5 mmol/L (21-32); CHLORIDE 109 mmol/L (98-107); COR CA(FOR HYPOALB) 10.4 mg/dL (8.5-10.1); CREATININE 0.58 mg/dL (0.55-1.02); SODIUM 144 mmol/L (136-145); TOTAL PROTEIN 5.3 g/dL (6.4-8.2); eGFR NON BLACK RACES > 60 (>60)
--- NOTE | 2018-02-10 06:53 | RAD ---
Examination: AP chest History: Postop fever Comparison 02/08/2018 Findings: Stable heart size. Left lung essentially clear. Mild atelectasis right base. No large pleur al effusion or pneumothorax demonstrated. Impression: Mild subsegmental atelectasis right base. No acute process otherwise demonstrated. Reported By:
[2018-02-10 06:55] LABS: HYPOCHROMASIA SLIGHT; PLATELET MORPHOLOGY COMMENT NORMAL (NORMAL)
[2018-02-10 08:29] VITALS: BP 138/67
[2018-02-10] MEDS: MVI INJ (ADULT) IV SCH (09:08)
[2018-02-10] MEDS ORDERED: LORTAB ELIX 7.5/325 MG (15 ML) PO PRN (09:17)
[2018-02-10] MEDS ORDERED: NS 100 ML IV 100 ML IV ONE (09:25)
[2018-02-10] MEDS: PROTONIX INJ 40 MG VIAL IVP SCH (09:30)
[2018-02-10] MEDS: NS 100 ML IV 100 ML IV SCH ×3 (09:37→11:39)
[2018-02-10] MEDS: LOVENOX INJ 30 MG SYR SC SCH (09:38)
[2018-02-10] MEDS: VIBRAMYCIN 100 MG in D5W 250 ML IV 250 ML IV SCH (10:00)
[2018-02-10] MEDS ORDERED: PEPCID 20 MG IV PREMIX* 20 MG/50 ML BAG IV SCH (10:00)
--- NOTE | 2018-02-10 10:40 | PCM.PROG ---
Progress Note - Progress Note for Day of Date: 02/09/18 - Subjective Subjective: WAS ADMITTED BY FOR AN EXPLORATORY LAPAROTOMY, LYSIS OF ADHESIONS, MOBELIZATION OF SPLENIC FLEXURE, AND CLOSURE OF HARTMANS PROCEDURE FOR RUPTURED DIVERTICULITIS. EXPLORATORY LAPAROTOMY REVEALED SEVERAL ABDOMINAL ADHESIONS AND MODERATE DIVERTICULOSIS. SHE IS POST OP DAY 2. SHE CONTINUES WITH ABDOMINAL PAIN THIS MORNING, SLIGHLY IMPROVED SINCE YESTERDAY. ON EXAMINATION, HEART IS REGULAR IN RATE AND RHYTHM. BILATERAL LUNGS ARE NOTED WITH DIMINISHED LUNG SOUNDS THROUGHOUT. ABDOMEN IS NOTED WITH A DRESSING AND BINDER, DRY AND INTACT. MILD, DIFFUSE ABDOMINAL PAIN NOTED. HER VITALS TODAY ARE 100.0-70-18-100%-127/58. SHE CONTINUES A LOW GRADE FEVER. LABS WERE OBTAINED. ABNORMAL LAB VALUES INCLUDE THE FOLLOWING: RBC 3.02, RBC 9.3, HCT 26.9 , PLT COUNT 144, CHLORIDE 108, GLUCOSE 108, MAGNESIUM 1.2. CULTURE OF ABDOMINAL FLUID IS PENDING. SHE CONTINUES ON A MORPHINE BANDOLEER PACKER AND TORADOL 30MG IV Q6H [place] FOR PAIN. WE WILL CONTINUE WITH CURRENT PLAN OF CARE TODAY AND OBTAIN A CHEST XRAY TO RULE OUT A DEVELOPING PNEUMONIA. IS ADVANCING HER TO A CLEAR LIQUID DIET. WE PLAN TO FOLLOW UP WITH AM LABS AND CONTINUE TO MONITOR PATIENT. - Past Medical Family Social History Past Med/Fam/Surg Hx: No changes since H&P Allergies: Allergies Iodine and Iodide Containing Produc Allergy (Verified 11/08/17 10:49) meperidine [From Demerol] Allergy (Verified 11/08/17 10:49) - Review of Systems ROS: No change since H&P - Vital Signs and I&O's Vital Signs: Temperature 98.9 F Pulse Rate [Right Brachial] 80 Pulse Rate 74 Respiratory Rate 20 Blood Pressure [Left Arm] 127/58 Blood Pressure [Right Arm] 138/67 Blood Pressure 96/45 O2 Sat by Pulse Oximetry 96 Intake and Output: Intake & Output 02/07/18 02/08/18 02/09/18 02/10/18 11:59 11:59 11:59 11:59 Intake Total 6840 / 6840 5219 / 5219 1895 / 1895 4066 / 4066 Output Total 3315 / 3315 1790 / 1790 135 / 135 85 / 85 Balance 3525 / 3525 3429 / 3429 1760 / 1760 3981 / 3981 - Physical Exam Oriented: Normal Eyes: Normal Ear: Normal Nose: Normal Throat: Normal Respiratory: Diminished Cardiovascular: Normal. negative: S3, S4, Murmur : Normal Auscultation: Bowel Sounds: Normal, Decreased Tenderness: Diffuse, Epigastric, Periumbilical Skin: Wound (ABDOMEN) Musculoskeletal: Normal Psychiatric: Normal Mood Description: Calm Affect: Normal Speech Pattern: Clear, Appropriate - Laboratory and Diagnostics Result Diagrams: 02/10/18 04:45 02/10/18 04:45 Labs: 02/06/18 15:56 Abdomen Gram Stain - Final 02/06/18 15:56 Abdomen Wound Culture - Preliminary Laboratory WBC 3.1 X10^3/uL (3.6-10.0) L 02/10/18 04:45 RBC 2.56 X10^6/uL (3.5-5.4) L 02/10/18 04:45 Hgb 7.7 g/dL (12.0-16.0) L 02/10/18 04:45 Hct 22.7 % (36.0-47.0) L 02/10/18 04:45 MCV 88.8 fL (80.0-100.0) 02/10/18 04:45 MCH 30.3 pg (27.0-34.0) 02/10/18 04:45 MCHC 34.1 g/dL (33.0-35.0) 02/10/18 04:45 RDW 16.5 % (11.6-16.5) 02/10/18 04:45 Plt Count 147 X10^3/uL (150.0-450.0) L 02/10/18 04:45 Plt Count Comment Adequate (ADEQUATE) 02/10/18 04:45 MPV 8.3 fL (7.4-11.0) 02/10/18 04:45 Neut % (Auto) 59.3 % (42.0-75.0) 02/10/18 04:45 Lymph % (Auto) 20.6 % (21.0-51.0) L 02/10/18 04:45 Ellis % (Auto) 11.4 % (0.0-13.0) 02/10/18 04:45 Eos % (Auto) 8.3 % (0.9-2.9) H 02/10/18 04:45 Baso % (Auto) 0.4 % (0.2-1.0) 02/10/18 04:45 Neut # (Auto) 1.8 x10^3/uL (2.2-4.8) L 02/10/18 04:45 Lymph # (Auto) 0.6 X10^3/uL (1.3-2.9) L 02/10/18 04:45 Ellis # (Auto) 0.4 x10^3/uL (0.3-0.8) 02/10/18 04:45 Eos # (Auto) 0.3 x10^3/uL (0.0-0.2) H 02/10/18 04:45 Baso # (Auto) 0.0 X10^3/uL (0.0-0.1) 02/10/18 04:45 Absolute Nucleated RBC 0.0 /100WBC 02/10/18 04:45 Plt Morphology Comment Normal (NORMAL) 02/10/18 04:45 RBC Morphology Abnormal (NORMAL) A 02/10/18 04:45 Hypochromasia Slight A 02/10/18 04:45 INR Target Range - 02/06/18 10:35 INR 0.98 (0.8-1.3) 02/06/18 10:35 Sodium 144 mmol/L (136-145) 02/10/18 04:45 Corrected Sodium TNP 02/10/18 04:45 Potassium 3.6 mmol/L (3.5-5.1) 02/10/18 04:45 Chloride 109 mmol/L (98-107) H 02/10/18 04:45 Carbon Dioxide 31.5 mmol/L (21-32) 02/10/18 04:45 BUN 2 mg/dL (7-18) L 02/10/18 04:45 Creatinine 0.58 mg/dL (0.55-1.02) 02/10/18 04:45 Est GFR (MDRD) Af Amer > 60 (>60) 02/10/18 04:45 Est GFR (MDRD) Non-Af > 60 (>60) 02/10/18 04:45 Glucose 102 mg/dL (65-99) H 02/10/18 04:45 Calcium 8.9 mg/dL (8.5-10.1) 02/10/18 04:45 Corrected Calcium 10.4 mg/dL (8.5-10.1) H 02/10/18 04:45 Magnesium 1.6 mg/dL (1.7-2.9) L 02/09/18 05:00 Total Bilirubin 0.40 mg/dL (0.2-1.0) 02/10/18 04:45 AST 17 Units/L (15-37) 02/10/18 04:45 ALT 16 Units/L (12-78) 02/10/18 04:45 Alkaline Phosphatase 42 Units/L (46-116) L 02/10/18 04:45 Total Protein 5.3 g/dL (6.4-8.2) L 02/10/18 04:45 Albumin 2.1 g/dL (3.4-5.0) L 02/10/18 04:45 Globulin 3.2 g/dL (2.5-4.5) 02/10/18 04:45 Albumin/Globulin Ratio 0.7 Ratio (1.1-2.1) L 02/10/18 04:45 Tissue Pathology To follow 02/06/18 15:04 Blood Type O POSITIVE 02/06/18 10:35 Antibody Screen Negative 02/06/18 10:35 Crossmatch See Detail 02/06/18 10:35
--- NOTE | 2018-03-04 03:23 | DR.CARTERD ---
- Discharge Summary for: Discharge Summary for Date of:: 02/10/18 - Admission Date Date of Admission: 02/06/18 - Admission Diagnoses Admission Diagnosis: 1. Closure of Vanessa's procedure 2. Lysis of adhesions 3. Diverticulosis - Discharge Date Discharge Date: 02/10/18 - Discharge Diagnoses Discharge Diagnosis: 1. Closure of Vanessa's procedure 2. Lysis of adhesions 3. Diverticulosis - Hospital Course Hospital Course: Ms. Shelby is a direct admit 62 year old white female for closure of colostomy. Patient suffered ruptured diverticulosis several months ago. The patient was taken to the Operating Room where the colostomy was completely mobilized and removed, per Dr. Jain. Patient was placed on MARKETING COMMUNICATIONS COORDINATOR with Morphine Sulfate for pain control. Medical History: Hyperlipidemia, HTN, Diverticulosis, Colostomy, Arthritis, Anemia, Anxiety. Abnormal Labs: RBC 3.46, HGB 10.3, HCT 30.6, RDW 18.0, 17.6, BUN 6, Chloride 109, Glucose 111, Calcium 10.4, Alk Phos 39, Total Protein 5.0, Albumin 2.3, Albumin/Globulin Ratio 1.0, 0.9 Abdomen Wound Culture obtained. Post op day one, she continued with abdominal pain. Abdomen was noted with a dressing and binder, dry and intact. She ran low grade temp throughout the night. We started a basal rate of Morphine MARKETING COMMUNICATIONS COORDINATOR at 2mg/ hr and started Toradol 30mg IV q6h for pain control. She continued NPO and we continued to monitor. Day three, post op day two, patient continued with abdominal pain but reported slightly improved from the day prior. She continued with low grade temp. Dr. Jain advanced diet to clear liquid. We continued to monitor. Day four, post op day three: patient noted with distended abdomen with diffuse abdominal tenderness on palpation. Patient noted with no bowel movement since surgery and on auscultation of abdomen patient noted with hypoactive bowel sounds throughout. DAVID drains x2 remained in place with minimal drainage noted. Labs obtained revealed a decreased magnesium of 1.6 and she had received two 1gm Mag-Riders IV. We discontinue Morphine MARKETING COMMUNICATIONS COORDINATOR, advanced diet to full liquids, and removed robin catheter. Day five, post op day four, patient was doing well. She was tolerating diet well. Patient reported pain was tolerable with oral pain medication. Dr. Jain released patient for discharge. Vital signs stable. Labs wnl. We planned for discharge. Instructions for medications and follow up were discussed with patient and family, both voiced understanding. Patient discharged home in stable condition with family. Labs: Microbiology 02/06/18 15:56 Abdomen Gram Stain - Final 02/06/18 15:56 Abdomen Wound Culture - Final Staphylococcus Aureus - Discharge Medications Discharge Medications: Home Medication List doxycycline hyclate [Vibramycin] 100 mg PO BID #20 cap 02/10/18 [Rx] hydrocodone-acetaminophen [Lortab Elixir] 15 ml PO Q6H PRN #473 ml 02/10/18 [Rx] ondansetron [Zofran ODT] 4 mg PO Q6H PRN #30 tab 02/10/18 [Rx] pantoprazole [Protonix] 40 mg PO DAILY #30 tab 02/10/18 [Rx] Prescriptions: doxycycline hyclate [Vibramycin] [place] hydrocodone-acetaminophen [Lortab Elixir] [place] ondansetron [Zofran ODT] [place] pantoprazole [Protonix] [place] raloxifene 60 mg PO DAILY 07/13/15 hydrocodone-acetaminophen 1 tab PO Q4H PRN 11/08/17 lisinopril 20 mg PO DAILY 11/08/17 rosuvastatin [Crestor] 10 mg PO HS 11/08/17 - Discharge Disposition Discharge Disposition: Patient is to follow up with Dr. Jain in one week.
== END 2018-02-10 12:00 | disposition home or self-care (01) | DRG 337 ==
LOC: OBS 09:56 → ICU 09:57 → MED/SURG 02-08 15:36
PROVIDERS: ADMIT Surgery; ATTEND Internal Medicine
PROC: COLOREV (2018-02-06 11:25)
DX: Z93.3 Colostomy status; B95.7 Other staphylococcus as the cause of diseases classified elsewhere; K57.32 Diverticulitis of large intestine without perforation or abscess without bleeding; K66.0 Peritoneal adhesions (postprocedural) (postinfection); R26.89 Other abnormalities of gait and mobility
CPT/HCPCS: 36415; 62326; 71010; 71045; 80048; 80053; 83735; 85025; 85610; 86850; 86900; 86901; 86922; 87070; 87075; 87077; 87186; 87205; 94669; 97165; A4216; A4218; A4222; C9113; S0020; S0028; J0171; J0330; J0690; J1170; J1650; J1885; J1956; J2250; J2271; J2370; J2405; J2704; J2710; J2765; J3010; J3475; J3490; J7050; J7060; J7120; S5010